=== PATIENT | female | born 1995 | race Caucasian/White ===

== ENCOUNTER 2018-03-01 00:38 | Outpatient (CLI) | payer MEDICAID, SELFPAY ==
--- NOTE | 2018-03-01 08:53 | DI.US_ITS ---
SYMPTOMS/DIAGNOSIS: PAIN, FULLNESS, AXILLARY ADENOPATHY, 59.0, R22.2, L73.2 BILATERAL AXILLARY ULTRASOUND: Sonographic evaluation of the axilla was performed. In the left axilla there is a 1.9 x 1.6 x 0.7 cm hypoechoic mass with a hyperechoic vascular hilum. The findings is consistent with a benign lymph node. In the right axilla there are two similar masses noted. The larger measuring 1.4 x 2.0 x 1.0 cm. The smaller measuring 1.5 x 0.9 x 0.6 cm. They are each hypoechoic with a vascular hyperechoic hilum consistent with benign appearing lymph nodes. IMPRESSION: Bilateral benign appearing lymph nodes in the axilla.
== END 2018-03-01 00:58 ==
PROVIDERS: PCP Nurse Practitioner Family; Visit Provider Student in an Organized Health Care Education/Training Program
DX: R59.0 Localized enlarged lymph nodes (principal); R22.2 Localized swelling, mass and lump, trunk; L73.2 Hidradenitis suppurativa
CPT/HCPCS: 76881

== ENCOUNTER 2020-11-06 13:07 | Outpatient (CLI) | payer MEDICAID, SELFPAY ==
--- NOTE | 2020-11-06 13:00 | RT.EKG_ITS ---
APPROVED REPORT Exam: Resting ECG Reason for Exam: irregular HR? Patient Location: O HR:79 bpm ECG Measurements Heart Rate 79 AXIS PA 155 P 36 QRSd 93 QRS 26 QT 356 T 21 QTc 408 Conclusion Sinus arrhythmia...V-rate 63- 92, variation>10%
== END 2020-11-06 13:08 | disposition home or self-care (01) ==
LOC: DI.KIM 13:08
PROVIDERS: PCP Student in an Organized Health Care Education/Training Program; Visit Provider Nurse Practitioner Family
DX: I49.9 Cardiac arrhythmia, unspecified (principal)
CPT/HCPCS: 93010

== ENCOUNTER 2020-11-08 10:41 | Outpatient (RCR) | payer MEDICAID, SELFPAY ==
--- OUTSIDE RECORDS SUMMARY | 2020-11-08 10:45 | XMS_ITS ---
:1995 Author Care Team Providers Name Role Phone BEBA DESIREE HALEY Primary Care Provider [phone] RADHA LAINEZ MD General Surgeon [phone] DAR CRUZ Unpaid Intern [phone] Allergies Code Code System Name Reaction Severity Status Onset 723 RxNorm Amoxicillin ? ? Active ? Bee Venom Anaphylaxis ? Active ? Protein (Honey Bee) 2670 RxNorm Codeine ? ? Active ? Penicillins ? ? Active ? [id number] RxNorm Pineapple Anaphylaxis ? Active ? Shellfish Anaphylaxis ? Active ? Derived Notes: hymenoptera-anaphylaxis Medications Name Status Start Date Stop Date ? ? acetaminophen 325 mg tablet Active ? Not available Take 1 tablet every 4 hours by oral route as needed. albuterol 90 mcg/actuation aerosol inhaler Active ? Not available Inhale 2 puffs every 4-6 hours by inhalation route as needed. aspirin 81 mg tablet,delayed release Active ? Not available Take 2 tablets every day by oral route. cholecalciferol (vitamin D3) Active ? Not available 2,000 unit capsule, PO daily cyclobenzaprine 5 mg tablet Completed ? 03/04 EpiPen 0.3 mg/0.3 mL injection, auto-injector Active Not available prn gabapentin 300 mg capsule Completed ? 2019 ibuprofen 200 mg capsule Active ? Not radha ilable Take 4 capsules every 8 hours by oral route as needed. ibuprofen 600 mg tablet Completed ? 03/26/20 20 letrozole 2.5 mg tablet Completed ? 03/26/20 20 levothyroxine 100 mcg tablet Completed ? levothyroxine 112 mcg capsule Active ? No t available Take 1 capsule every day by oral route. levothyroxine 50 mcg tablet Completed ? 03/04 levothyroxine 75 mcg tablet Completed ? 03/04 Macrobid 100 mg capsule Completed ? 03/26/20 20 Take 1 capsule every 12 hours by oral route for 7 days. metformin ER 500 mg tablet,extended release 24 hr Active ? Not available Take 3 tablets every day by oral route for 90 days. metformin ER 750 mg Completed ? 03/26/2020 tablet,extended release 24 hr ondansetron HCl 4 mg tablet Completed ? 03/04 Gummies 400 mcg-35 mg-25 mg-5 mg chewable tablet Active ? Not available Take 2 tablets every day by oral route. progesterone micronized 200 mg Completed ? 1 05/26/2019 capsule promethazine 12.5 mg tablet Completed ? 03/04 promethazine 25 mg rectal Completed ? 2019 suppository Pyridium 200 mg tablet Completed ? 0 Take 1 tablet 3 times a day by oral route for 2 days. terconazole 0.4 % vaginal cream Completed ? 03/26/2020 Notes: 01/20/2020 patient only ta ron metformin and levothyroxine Problems Name Status Onset Date Source ? Asthma Active 10/03/2018 ? Seizure Active 10/03/2018 ? Hypothyroidism Active 03/26/2020 ? Jordan Thyroiditis Active 03/26/2020 ? Anxiety Active 03/26/2020 ? Adjustment Disorder Active 03/26/2020 ? Posttraumatic Stress Disorder Active 03/26/2020 ? Attention Deficit Hyperactivity Disorder Active 020 ? Chronic Fatigue Syndrome Active 03/26/2020 ? Idiopathic Generalized Epilepsy Active 03/26/2020 ? Neuropathy Active 03/26/2020 ? Bronchospasm Active 03/26/2020 ? Femoral Hernia Active 03/26/2020 ? Urinary Tract Infectious Disease Active 03/26/2020 ? Pain in Pelvis Active 03/26/2020 ? Female Infertility Active 03/26/2020 ? Hip Pain Active 03/26/2020 ? Jaw Pain Active 03/26/2020 ? Lymphadenopathy Active 03/26/2020 ? Increased Frequency of Urination Active 03/26/2020 ? Concussion Injury of Brain Active 03/26/2020 ? Cyst Active 03/26/2020 ? Suicidal Intent Active 03/26/2020 ? Polycystic Ovary Active 03/26/2020 ? Procedures Date Name Performed by ? 07/02/2019 Cholecystectomy Laparoscopic Information not available 02/24/2017 Hernia Repair Information not avai lable Notes: rt femoral with mesh 10/31/2016 Dilation and Curettage Information not a vailable 08/19/2015 Section Information not avai lable ? Tonsillectomy Information not avai lable ? Wrist Surgery Information not avai lable Results Lab Results Date Name Specimen Result Interpretation Description Value Range Status Address ? 04/03/2019 TSH, Serum S - Tsh 0.84 u[IU]/mL 0.47-4.68 Final [facility] or Plasma u[IU]/mL Count Hospital L ab (Internal) : [address] 04/03/2019 T4, Free, S - Ft4 0.90 NG/dL 0.78-2.19 Fin [facility] Serum NG/dL [facility] Hospital L ab (Internal) : [address] [facility] 04/03/2019 Neutrophil BLD - Anc-man 9.60 10*3/uL ? F inal [facility] Count, ual [facility] Hospital Lab (Anc), Blood (Int ernal): [address] 04/03/2019 Differential BLD - Polys 69 % 40-75 % Final [place] [facility] L ab (Internal) : [address] ? ? BLD - Bands 0 % 0-5 % Final [facility] L ab (Internal) : [address] ? ? BLD - Lymphs 27 % 20-50 % Final [facility] L ab (Internal) : [address] t ? ? BLD - [place] 3 % 2-10 % Final [facility] L ab (Internal) : [address] ? ? BLD - Eos 0 % 0-6 % Final [facility] L ab (Internal) : [address] ? ? BLD - Baso 0 % 0-1 % Final [facility] L ab (Internal) : [address] t ? ? BLD - Atyp 1 % ? Final [facility] L ab (Internal) : [address] ? ? BLD - Plts, adequate adequate Final [facility] Hospital L ab (Internal) : [address] ? ? BLD - RBC normal normal Final [facility] Hospital L ab (Internal) : [address] t 04/03/2019 CBC W/ Auto BLD High Wbc 13.9 10*3/uL 5.0-10.0 Final [facility] Diff 10*3/uL [facility] Hospital L ab (Internal) : [address] ? ? BLD Low Rbc 3.58 10*6/uL 4.10-5.30 Final N orth 10*6/uL [facility] Hospital L ab (Internal) : [address] ? ? BLD Low Hgb 10.8 g/dL 12.0-16.0 Final Nort h g/dL [facility] Hospital L ab (Internal) : [address] ? ? BLD Low Hct 31.6 % 37.0-47.0 Final [facility] L ab (Internal) : [address] ? ? BLD - Mcv 88.3 fL 80.0-96.0 Final [facility] fL [facility] L ab (Internal) : [address] ? ? BLD - Mch 30.2 pg 26.0-32.0 Final [facility] pg [facility] L ab (Internal) : [address] ? ? BLD - Mchc 34.2 g/dL 31.0-35.0 Final Nort h g/dL [facility] L ab (Internal) : [address] ? ? BLD - Rdw 13.4 % 11.5-14.5 Final [facility] L ab (Internal) : [address] ? ? BLD - Plt 153 10*3/uL 130-450 Final Nort h 10*3/uL [facility] L ab (Internal) : [address] 01/18/2019 T4, Free, S - Ft4 1.08 NG/dL 0.78-2.19 Fin [facility] Serum NG/dL [facility] L ab (Internal) : [address] 01/18/2019 TSH, Serum S Low Tsh 0.44 u[IU]/mL 0.47-4.68 Final [facility] or Plasma u[IU]/mL Count Hospital L ab (Internal) : [address] 12/21/2018 Glucose S High Gluc, 1 167 mg/dL 70-140 Final [facility] Tolerance hr Pp mg/dL [facility], (Int ernal): 1-Hour [address] 12/01/2018 T4, Free, S - Ft4 1.02 NG/dL 0.78-2.19 Fin al [facility] Serum NG/dL [facility] L ab (Internal) : [address] 12/01/2018 TSH, Serum S - Tsh 0.52 u[IU]/mL 0.47-4.68 Final [facility] or Plasma u[IU]/mL Count [facility] L ab (Internal) : [address] 11/20/2018 UR ABNORMA Hcgu positive negative Final [facility] Test, Urine L Count [facility] L ab (Internal) : [address] 11/20/2018 Urinalysis, UR - UA-colo yellow pale Final [facility] Dipstick, r yellow [facility] ital Lab (Internal) : [address] t ? ? UR ABNORMA UA-appe cloudy clear Final [facility] L ab (Internal) : [address] ? ? UR - UA-spec 1.015 1.003-1.03 Final Nort h Grav 5 [facility] L ab (Internal) : [address] ? ? UR - UA-pH 7.0 [pH] 4.6-8.0 Final [facility] [pH] [facility] L ab (Internal) : [address] ? ? UR - UA-leuk negative negative Final Nort h Est [facility] L ab (Internal) : [address] t ? ? UR - UA-nitr negative negative Final Nort h ite [facility] L ab (Internal) : [address] t ? ? UR - UA-prot negative negative Final Nort h [facility] L ab (Internal) : [address] t ? ? UR - UA-gluc negative negative Final Nort h [facility] L ab (Internal) : [address] t ? ? UR - UA-keto negative negative Final Nort h ne [facility] L ab (Internal) : [address] t ? ? UR - UA-urob normal normal Final [facility] L ab (Internal) : [address] t ? ? UR - UA-bili negative negative Final Nort h [facility] ab (Internal) : [address] t ? ? UR - UA-bloo negative negative Final Nort h d [facility] ab (Internal) : [address] 11/20/2018 Urinalysis, UR - UA-WBC 0-3 [hpf] 0-3 [hpf] F inal [place] Microscopic Count [facility] L ab (Internal) : [address] t ? ? UR - UA-RBC 0-2 [hpf] 0-2 [hpf] Final Nor th [facility] L ab (Internal) : [address] t ? ? UR ABNORMA UA-bact few [hpf] none seen Final N orth L eria [hpf] [facility] ab (Internal) : [address] t ? ? UR ABNORMA UA-epit moderate none seen Final No rth L helial [hpf] [hpf] [facility] ab (Internal) : [address] t ? ? UR ABNORMA UA-mucu rare [hpf] none seen Final [facility] L s [hpf] [facility] ab (Internal) : [address] t ? ? UR - Amorph moderate ? Final [place] [hpf] [facility] ab (Internal) : [address] t 11/20/2018 Culture UR - Final microbiology ? Final [facility] ([place] results Country Count), Hospital Lab Urine (Internal) : [address] t 11/01/2018 T4, Free, S - Ft4 1.21 NG/dL 0.78-2.19 Fin [facility] Serum NG/dL [facility] L ab (Internal) : [address] t 11/01/2018 TSH, Serum S - Tsh 1.41 u[IU]/mL 0.47-4.68 Final North or Plasma u[IU]/mL Count [facility] L ab (Internal) : [address] t 10/07/2018 beta-HCG, S High HCG, 1372.9 2.0-6.0 Final No rth Quantitative Quant [IU]/mL [IU]/mL Co untry , Serum or Hospit al Lab Plasma (Internal) : [address] t 10/05/2018 CT RNA, MISC - Specime urine ? Final Nor th Qual, PCR, n Countr y Unspecified Descript Hos pital Lab Specimen ion (Interna l): [address] [facility] ? ? MISC - Chlamyd negative ? Final [facility] Result Hospital L ab (Internal) : [address] [facility] ? ? MISC - GC negative ? Final [facility] Hospital L ab (Internal) : [address] [facility] 10/05/2018 Progesterone S - Progest 17.5 NG/mL ? F inal [place] , Serum [facility] L ab (Internal) : [address] [facility] 10/05/2018 beta-HCG, S High HCG, 404.4 [IU]/mL 2.0-6.0 Fi [facility] Quantitative Quant [IU]/mL Cou ntry , Serum or Hospit al Lab Plasma (Internal) : [address] [facility] 10/05/2018 TSH, Serum S High Tsh 5.34 u[IU]/mL 0.47-4.68 Final North or Plasma u[IU]/mL Count Hospital L ab (Internal) : [address] [facility] 10/02/2018 TSH, Serum S - Tsh 3.00 u[IU]/mL 0.47-4.68 Final North or Plasma u[IU]/mL Count Hospital L ab (Internal) : [address] [facility] 10/02/2018 beta-HCG, S High HCG, 132.2 [IU]/mL 2.0-6.0 Fi [facility] Quantitative Quant [IU]/mL Cou ntry , Serum or Hospit al Lab Plasma (Internal) : [address] [facility] 09/30/2018 Progesterone S - Progest 15.7 NG/mL ? F inal [facility] , Serum [facility] Hospital L ab (Internal) : [address] [facility] 09/30/2018 Estradiol, S - Estradi 310 pg/mL ? Kaylene l [facility] Serum [facility] L ab (Internal) : [address] [facility] 09/30/2018 TSH, Serum S - Tsh 2.25 u[IU]/mL 0.47-4.68 Final North or Plasma u[IU]/mL Count Hospital L ab (Internal) : [address] t 09/30/2018 beta-HCG, S High HCG, 58.0 [IU]/mL 2.0-6.0 Fin al [facility] Quantitative Quant [IU]/mL Cou ntry , Serum or Hospit al Lab Plasma (Internal) : [address] t 09/30/2018 Tick-borne BLD - Babesia negative negative Fin [facility] Disease Microti [facility] L ab (Internal) : [address] ? ? BLD - Babesia negative negative Final Nort h Duncani [facility] Hospital L ab (Internal) : [address] [place] ? ? BLD - Babesia negative negative Final Nort h divergen [facility]- Hospital L ab (Internal) : [address] [place] ? ? BLD - Anaplas negative negative Final Nort h ma [facility] Lab ophilum (Internal ): [address] [place] ? ? BLD - Saba negative negative Final Nort h ia [facility] Lab sis (Internal[facility] : [address] [place] ? ? BLD - Saba negative negative Final Nort h ia Country Ewingii/ Hospital Lab canis (Internal) : [address] [place] ? ? BLD - Saba negative negative Final Nort h ia [facility]is [facility] ensis (Internal) : [address] t ? ? BLD - B. negative negative Final [facility] i PCR, B Hospital Lab (Internal) : [address] t 09/30/2018 Borrelia S - Lyme negative ? Final No rth Burgdorferi Antibody Cou ntry Ab, Qual Hospital Lab Immunoassay, (Int ernal): Serum [address] t 09/30/2018 CBC W/ Auto BLD High Wbc 13.8 10*3/uL 5.0-10.0 Final North Diff 10*3/uL [facility] L ab (Internal) : [address] t ? ? BLD - Rbc 4.45 10*6/uL 4.10-5.30 Final N orth 10*6/uL [facility] L ab (Internal) : [address] ? ? BLD - Hgb 13.1 g/dL 12.0-16.0 Final Nort h g/dL [facility] Hospital L ab (Internal) : [address] ? ? BLD - Hct 38.1 % 37.0-47.0 Final [facility] Hospital L ab (Internal) : [address] ? ? BLD - Mcv 85.6 fL 80.0-96.0 Final [facility] Hospital L ab (Internal) : [address] ? ? BLD - Mch 29.4 pg 26.0-32.0 Final [facility] Hospital L ab (Internal) : [address] ? ? BLD - Mchc 34.4 g/dL 31.0-35.0 Final Nort h g/dL [facility] Hospital L ab (Internal) : [address] ? ? BLD - Rdw 12.6 % 11.5-14.5 Final [facility] Hospital L ab (Internal) : [address] ? ? BLD - Plt 217 10*3/uL 130-450 Final Nort h 10*3/uL [facility] Hospital L ab (Internal) : [address] gerry ? ? BLD - Anc 9.07 10*3/uL ? Final Nort h [facility] Hospital L ab (Internal) : [address] ? ? BLD - Neutro 65.9 % 40.0-75.0 Final [facility] Hospital L ab (Internal) : [address] ? ? BLD - Lymph 26.0 % 20.0-50.0 Final [facility] Hospital L ab (Internal) : [address] ? ? BLD - [place] 6.0 % 2.0-10.0 % Final [facility] Hospital L ab (Internal) : [address] ? ? BLD - Eos 1.3 % 1.0-6.0 % Final [facility] Hospital L ab (Internal) : [address] ? ? BLD - Baso 0.4 % 0.0-1.0 % Final [facility] Hospital L ab (Internal) : [address] [facility] t ? ? BLD - Ig 0.4 % 0.0-0.9 % Final [facility] Hospital L ab (Internal) : [address] [facility] 09/01/2018 TSH, Serum S Low Tsh 0.08 u[IU]/mL 0.47-4.68 Final [facility] or Plasma u[IU]/mL Count Hospital L ab (Internal) : [address] [facility] 09/01/2018 Progesterone S - Progest 0.5 NG/mL ? Fi [facility] , Serum [facility] L ab (Internal) : [address] [facility] 09/01/2018 Estradiol, S - Estradi 18 pg/mL ? Final [facility] L ab (Internal) : [address] [facility] 09/01/2018 beta-HCG, S - HCG, <2.4 [IU]/mL 2.0-6.0 [facility] Quantitative Quant [IU]/mL Cou ntry , Serum or Hospit al Lab Plasma (Internal) : [address] [facility] 06/14/2018 beta-HCG, S - HCG, <2.4 [IU]/mL 2.0-6.0 [facility] Quantitative Quant [IU]/mL Cou ntry , Serum or Hospit al Lab Plasma (Internal) : [address] [facility] 05/17/2018 CT RNA, MISC - Specime urine ? Final Nor th Qual, PCR, n Countr y Unspecified Descript Hos pital Lab Specimen ion (Interna l): [address] t ? ? MISC - Chlamyd negative ? Final [facility] Result Hospital L ab (Internal) : [address] [facility] t ? ? MISC - GC negative ? Final [facility] Hospital L ab (Internal) : [address] [facility] 05/17/2018 [facility] MISC - [id number] see below ? Final No rth Refrigerate 05/20/2018 C ountry 01:54 pm Hospital Lab (Internal) : [address] [facility] 05/17/2018 Progesterone S - Progest 0.9 NG/mL ? [facility] , Serum [facility] L ab (Internal) : [address] [facility] 05/17/2018 beta-HCG, S - HCG, <2.4 [IU]/mL 2.0-6.0 [facility] Quantitative Quant [IU]/mL Cou ntry , Serum or Hospit al Lab Plasma (Internal) : [address] 05/17/2018 TSH, Serum S Low Tsh 0.18 u[IU]/mL 0.47-4.68 Final North or Plasma u[IU]/mL Count Hospital L ab (Internal) : [address] [place] 04/30/2018 Progesterone S - Progest 11.9 NG/mL ? F inal [place] , Serum erone [facility] L ab (Internal) : [address] [place] 12/12/2017 beta-HCG, S High HCG, 25.3 [IU]/mL 2.0-6.0 [facility] Quantitative Quant [IU]/mL Cou ntry , Serum or Hospit al Lab Plasma (Internal) : [address] [place] 12/09/2017 CBC W/ Auto BLD High Wbc 11.5 10*3/uL 5.0-10.0 Final [facility] Diff 10*3/uL [facility] L ab (Internal) : [address] gerry ? ? BLD - Rbc 4.24 10*6/uL 4.10-5.30 Final N orth 10*6/uL [facility] L ab (Internal) : [address] ? ? BLD - Hgb 12.5 g/dL 12.0-16.0 Final Nort h g/dL [facility] L ab (Internal) : [address] ? ? BLD Low Hct 36.0 % 37.0-47.0 Final [facility] % [facility] L ab (Internal) : [address] ? ? BLD - Mcv 84.9 fL 80.0-96.0 Final [facility] fL [facility] L ab (Internal) : [address] ? ? BLD - Mch 29.5 pg 26.0-32.0 Final [facility] pg [facility] L ab (Internal) : [address] ? ? BLD - Mchc 34.7 g/dL 31.0-35.0 Final Nort h g/dL [facility] Hospital L ab (Internal) : [address] [place] ? ? BLD - Rdw 12.8 % 11.5-14.5 Final [facility] % [facility] Hospital L ab (Internal) : [address] [place] [place] ? ? BLD - Plt 219 10*3/uL 130-450 Final Nort h 10*3/uL [facility] Hospital L ab (Internal) : [address] ? ? BLD - Anc 6.46 10*3/uL ? Final Nort h [facility] Hospital L ab (Internal) : [address] ? ? BLD - Neutro 56.2 % 40.0-75.0 Final [facility] Hospital L ab (Internal) : [address] ? ? BLD - Lymph 36.5 % 20.0-50.0 Final [facility] Hospital L ab (Internal) : [address] ? ? BLD - [place] 5.5 % 2.0-10.0 % Final [facility] Hospital L ab (Internal) : [address], [place] ? ? BLD - Eos 1.2 % 1.0-6.0 % Final [facility] Hospital L ab (Internal) : [address] ? ? BLD - Baso 0.3 % 0.0-1.0 % Final [facility] Hospital L ab (Internal) : [address] ? ? BLD - Ig 0.3 % 0.0-0.9 % Final [facility] Hospital L ab (Internal) : [address] t 12/09/2017 BMP, Serum S - g/r 88 mg/dL 74-106 Final North or Plasma mg/dL [facility] Hospital L ab (Internal) : [address] ? ? S - Bun 8 mg/dL 7-17 mg/dL Final [facility] Hospital L ab (Internal) : [address] ? ? S - Crea 0.60 mg/dL 0.52-1.04 Final [facility] th mg/dL [facility] Hospital L ab (Internal) : [address] ? ? S - Ca 9.3 mg/dL 8.4-10.2 Final [facility] mg/dL [facility] Hospital L ab (Internal) : [address] ? ? S - Na 138 mmol/L 137-145 Final North mmol/L [facility] Hospital L ab (Internal) : [address] t ? ? S - K 3.5 mmol/L 3.5-5.1 Final [place] mmol/L [facility] Hospital L ab (Internal) : [address] ? ? S - Cl 107 mmol/L 98-107 Final [facility] mmol/L [facility] Hospital L ab (Internal) : [address] ? ? S Low Tco2 20.0 mmol/L 22.0-30.0 Final No rth mmol/L [facility] Hospital L ab (Internal) : [address] 12/09/2017 Urinalysis, UR - UA-colo yellow pale Final [facility] Dipstick, r yellow [facility] ital Lab (Internal) : [address] ? ? UR - UA-appe clear clear Final [facility] Hospital L ab (Internal) : [address] ? ? UR - UA-spec 1.010 1.003-1.03 Final Nort h Grav 5 [facility] Hospital L ab (Internal) : [address] ? ? UR - UA-pH 6.5 [pH] 4.6-8.0 Final [facility] [pH] [facility] Hospital L ab (Internal) : [address] ? ? UR - UA-leuk negative negative Final Nort h Est [facility] Hospital L ab (Internal) : [address] t ? ? UR - UA-nitr negative negative Final Nort h ite [facility] Hospital L ab (Internal) : [address] ? ? UR - UA-prot negative negative Final Nort h [facility] Hospital L ab (Internal) : [address] ? ? UR - UA-gluc negative negative Final Nort h [facility] Hospital L ab (Internal) : [address] ? ? UR - UA-keto negative negative Final Nort h ne [facility] Hospital L ab (Internal) : [address] t ? ? UR - UA-urob normal normal Final North [facility] Hospital L ab (Internal) : [address] ? ? UR - UA-bili negative negative Final Nort h [facility] L ab (Internal) : [address] ? ? UR - UA-bloo negative negative Final Nort h d [facility] L ab (Internal) : [address] 12/09/2017 beta-HCG, S High HCG, 151.1 [IU]/mL 2.0-6.0 Fi nal [place] Quantitative Quant [IU]/mL Cou ntry , Serum or Hospit al Lab Plasma (Internal) : [address] 05/16/2017 [employer] + BLD ? Abo O ? Final N orth Rh Type, [facility] L ab (Internal) : [address] ? ? BLD ? Rh positive ? Final [facility] L ab (Internal) : [address] 05/16/2017 beta-HCG, S High HCG, 2854.7 2.0-6.0 Final No rth Quantitative Quant [IU]/mL [IU]/mL Co untry , Serum or Hospit al Lab Plasma (Internal) : [address] 05/16/2017 CBC W/ Auto BLD High Wbc 11.3 10*3/uL 5.0-10.0 Final North Diff 10*3/uL [facility] L ab (Internal) : [address] ? ? BLD Low Rbc 4.05 10*6/uL 4.10-5.30 Final N orth 10*6/uL [facility] L ab (Internal) : [address] ? ? BLD Low Hgb 11.8 g/dL 12.0-16.0 Final Nort h g/dL [facility] L ab (Internal) : [address] ? ? BLD Low Hct 34.8 % 37.0-47.0 Final [place]thon % [facility] L ab (Internal) : [address] ? ? BLD ? Mcv 85.9 fL 80.0-96.0 Final [facility] L ab (Internal) : [address] ? ? BLD ? Mch 29.1 pg 26.0-32.0 Final [facility] L ab (Internal) : [address] [place] ? ? BLD ? Mchc 33.9 g/dL 31.0-35.0 [facility] L ab (Internal) : [address] [place] ? ? BLD ? Rdw 12.6 % 11.5-14.5 Final [facility] L ab (Internal) : [address] , [place] ? ? BLD ? Plt 244 10*3/uL 130-450 Final Nort h 10*3/uL [facility] L ab (Internal) : [address] [place] ? ? BLD ? Anc 6.73 10*3/uL ? Final Nort h [facility] L ab (Internal) : [address] [place] ? ? BLD ? Neutro 59.3 % 40.0-75.0 Final [facility] L ab (Internal) : [address] ? ? BLD ? Lymph 32.7 % 20.0-50.0 Final [facility] L ab (Internal) : [address] [place] ? ? BLD ? [place] 5.4 % 2.0-10.0 % Final [facility] L ab (Internal) : [address] [place] ? ? BLD ? Eos 1.7 % 1.0-6.0 % Final [facility] ab (Internal) : [address] ? ? BLD ? Baso 0.6 % 0.0-1.0 % Final [facility] L ab (Internal) : [address] ? ? BLD ? Ig 0.3 % 0.0-0.9 % Final [facility] L ab (Internal) : [address], [place] Past Encounters 12/07/2019 Torticollis; Stiff Neck; Muscle Weakness ; Neck Pain Anne Adame, PT: [address], [address], [place] [address], Ph. 11/02/2019 Torticollis; Stiff Neck; Muscle Weakness ; Neck Pain Anne Adame, PT: [address], [address] [address], Ph. 10/10/2019 Torticollis; Stiff Neck; Muscle Weakness ; Neck Pain Anne Adame, PT: [address] [place] [address] Dr [address], [address] [id number], Ph. 07/12/2019 Torticollis; Stiff Neck; Muscle Weakness ; Neck Pain Anne Adame, PT: [address] [place] [address] Dr [address], [address] [phone], Ph. 07/05/2019 Torticollis; Stiff Neck; Muscle Weakness ; Neck Pain Anne Adame, PT: [address] [place] [address] Dr [address], [address] [address], Ph. 06/30/2019 Torticollis; Stiff Neck; Muscle Weakness ; Neck Pain Anne Adame, PT: [address] [place] [address] Dr [address], [address] [phone], Ph. Social History Tobacco Smoking Status Current Some Day Smoker Vaccine List None recorded. Plan of Care Reminders Provider Appointments None ? ? recorded. Lab None ? ? recorded. Referral None ? ? recorded. Procedures None ? ? recorded. Surgeries None ? ? recorded. Imaging None ? ? recorded. Vitals Height Weight BMI 160.02 cm 76.43 kg 29.8 kg/m2
--- NOTE | 2020-11-08 16:15 | HOLTER_ITS ---
APPROVED REPORT Conclusion There is a 48-hour monitor ordered for indication palpitations. The patient was in normal sinus rhythm for the majority recording with an average heart rate of 85 bp m. There were no episodes of ventricular tachycardia nor any episodes of supraventricular tachycardia. There were rare PACs/PVCs. There were no episodes of atrial fibrillation, no pauses greater than 3 seconds no evidence of high d egree heart block. There were 2 patient recorded events reported as a skipped beat. 1 of these events was associated wi th a single PAC and the other one with normal sinus rhythm.
== END 2020-11-30 23:59 | disposition home or self-care (01) ==
LOC: RT 10:41
PROVIDERS: PCP Student in an Organized Health Care Education/Training Program; Visit Provider Nurse Practitioner Family
DX: R00.2 Palpitations (principal)
CPT/HCPCS: 93225; 93226

== ENCOUNTER 2021-06-13 01:00 | Outpatient (CLI) | payer MEDICAID, SELFPAY ==
--- NOTE | 2021-06-13 13:24 | DI.RAD_ITS ---
Exam(s) XR CHEST 2V PA LATERAL EXAM: XR CHEST 2V PA LATERAL CLINICAL HISTORY: review for pneumonia, lung pathology,h/o chest pain,covid,r07.81,pleurodyni TECHNIQUE: 2D digital imaging was performed of the chest. Two images were obtained. PA and lateral views were obtained. COMPARISON: CR CHEST 2 VIEWS PA,LAT from 11/20/2011 FINDINGS: MEDIASTINUM: Normal. HEART: Normal. PULMONARY VASCULATURE: Normal. LUNGS: Clear. PLEURAL SPACE: No pleural effusion or pneumothorax. BONE:Within normal limits for the patient's age. OTHER FINDINGS:Normal. IMPRESSION: No acute pulmonary findings. DATA REPOSITORY: RADIATION DOSE DELIVERED:
== END 2021-06-13 01:20 ==
PROVIDERS: PCP Student in an Organized Health Care Education/Training Program; Visit Provider Student in an Organized Health Care Education/Training Program
DX: R07.81 Pleurodynia (principal); Z86.16 Personal history of COVID-19
CPT/HCPCS: 71046

== ENCOUNTER 2021-06-13 02:46 | Outpatient (CLI) | payer MEDICAID, SELFPAY ==
--- NOTE | 2021-07-07 09:04 | ZIOP_ITS ---
Date of service: 07/07/21 Time of Service: 09:04 [employer] Referring Provider:: elian Indications:: palps Note: There is a 14-day monitor order for indication of palpitations. ?The patient was in normal sinus rhythm for the majority the recording with an average heart rate of 76 bpm. ?There were rare PVCs and one episode of NSVT lasting 3 beats. This was reported as symptomatic. ?There were no episodes of supraventricular tachycardia and rare PACs. ?There were 13 patient triggered events which were associated predominantly with sinus rhythm and sinus tachycardia. ?There are no episodes of atrial fibrillation, no pauses greater than 3 seconds and no evidence of high degree heart block.
== END 2021-06-13 02:47 | disposition home or self-care (01) ==
LOC: RT 02:46
PROVIDERS: PCP Student in an Organized Health Care Education/Training Program; Visit Provider Student in an Organized Health Care Education/Training Program
DX: R00.2 Palpitations (principal); I49.9 Cardiac arrhythmia, unspecified; U09.9 Post COVID-19 condition, unspecified
CPT/HCPCS: 93246

== ENCOUNTER 2021-09-03 18:39 | Emergency (ER) | payer MEDICAID, SELFPAY ==
[2021-09-03 18:44] VITALS: BP 136/65; PULSE 84; RESP 16; TEMP 37.2; O2SAT 97
[2021-09-03 19:13] LABS: Bilirubin Negative (Negative); Blood Trace-intact (Negative); Clarity Clear (Clear); Glucose Negative (Negative); Ketones Negative (Negative); Leukocyte Esterase Negative (Negative); Nitrite Negative (Negative); Specific Gravity >= 1.030 (1.005-1.025); Urobilinogen 0.2 EU/dL (Up TO 0.2)
[2021-09-03 19:28] LABS: Bacteria Negative HPF (Negative); C & S Indicated? No; Casts Negative LPF (Negative); Crystals Negative HPF (Negative); Epithelial Cells Few HPF (Negative); Mucus Negative (Negative); Other Cells Negative (Negative); RBC Negative HPF (0-2)
--- NOTE | 2021-09-03 19:39 | ED.GENADUL_ITS ---
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 Urine Bilirubin (Negative) Negative Urine Urobilinogen (Up TO 0.2) EU/dL 0.2 Ur Leukocyte Esterase (Negative) Negative Urine RBC (0-2) HPF Negative Urine WBC (0-5) HPF 3-5 Ur Epithelial Cells (Negative) HPF Few Urine Crystals (Negative) HPF Negative Urine Bacteria (Negative) HPF Negative Urine Casts (Negative) LPF Negative Urine Mucus (Negative) Negative Urine Other (Negative) Negative Ur Culture Indicated? No Urine Glucose (Negative) mg/dL Negative POC- Test(urine) Negative
[2021-09-03] MEDS: Normal Saline 1,000 ML 1000 ML IV (20:13)
[2021-09-03 20:21] LABS: Abs Immature Grans 0.04 10^3/uL (0.0-0.06); Absolute Basophil Count 0.07 10^3/uL (0.0-0.2); Absolute Lymphocyte Count 4.24 10^3/uL (1.2-3.4); Absolute Monocyte Count 0.76 10^3/uL (0.1-0.8); Absolute Neutrophil Count 5.21 10^3/uL (1.2-6.7); Basophils % 0.7; Eosinophils % 2.8; HGB 12.7 g/dL (11.2-15.7); Immature Grans % 0.4; Lymphocytes % 39.9; MCH 27.5 pg (27.0-33.0); MCHC 33.4 % (32.0-36.0); MCV 82 fL (80-95); MPV 11.1 fL (8.0-11.0); Monocytes % 7.2; Platelet Count 249 10^3/uL (130-400); RBC 4.62 10^6/uL (3.93-5.22); RDW-SD 41.5 fL; WBC 10.62 10^3/uL (4.4-10.8)
[2021-09-03] MEDS: ACETAMINOPHEN 1,000 MG/100 ML BTL 400 MG IVPB (20:21)
--- NOTE | 2021-09-03 20:30 | DI.CT_ITS ---
Exam(s) CT RENAL COLIC WO EXAM: CT RENAL COLIC WO INDICATION: L flank pain, hematuria. COMPARISON: CT RENAL COLIC WO CONTRAST from 11/15/2012 TECHNIQUE: CT examination was performed without contrast administration. FINDINGS: Images obtained through the lung bases are unremarkable. Visualized portions of the liver and splee n appear intact. Visualized portions of the pancreas are unremarkable. Prior cholecystectomy noted, bile ducts are CT normal. Abdominal aorta is of normal diameter. Small fat containing umbilical hernia, no other significant abdominal wall hernia seen. No significa nt abdominal or pelvic adenopathy. Adrenals appear normal bilaterally. The kidneys are normal in size and shape. There is no evidence of a renal mass, hydronephrosis, or n ephrolithiasis. No ureteral dilatation or calcification identified. Urinary bladder is unremarkable in appearance. Appendix is normal. No specific evidence of diverticulitis. Mild fat stranding adjacent to descendi ng colon may represent epiploic appendagitis. IMPRESSION: Possible epiploic appendagitis of the descending colon. No urinary tract calcification or obstructio n. RADIATION DOSE DELIVERED: 973.58mGy.cm DLP 973.58mGy.cm Total DLP !Error CTDIvol RADIATION OPTIMIZATION: All CT scans at this facility use at least one of these dose optimization te chniques: automated exposure control; mA and/or kV adjustment per patient size (includes targeted exa ms where dose is matched to clinical indication); or iterative reconstruction.
[2021-09-03 20:35] LABS: ALT 35 U/L (14-59); AST 17 U/L (15-37); Alkaline Phosphatase 126 U/L (46-116); Anion Gap 9.3 mmol/L (3-11); BUN 14 mg/dL (7-18); Bilirubin, Total 0.2 mg/dL (0.2-1.0); CO2 24.7 mmol/L (21.0-32.0); CREATININE 0.7 mg/dL (0.55-1.02); Calcium 8.8 mg/dL (8.5-10.1); Chloride 103 mmol/L (98-107); Glucose 97 mg/dL (74-106); Lipase 120 U/L (73-393); Potassium 3.8 mmol/L (3.5-5.1); Sodium 137 mmol/L (136-145); Total Protein 7.6 g/dL (6.4-8.2)
--- NOTE | 2021-09-03 21:45 | DI.VRAD_ITS ---
PROCEDURE INFORMATION: Exam: CT Abdomen And Pelvis Without Contrast Exam date and time: 09/03/2021 8:46 PM Age: 26 years old Clinical indication: Abdominal pain; Flank; Left; Prior surgery; Surgery date: 6+ months; Surgery type: Cholecystectomy, ; Additional info: Left flank pain, hematuria TECHNIQUE: Imaging protocol: Computed tomography of the abdomen and pelvis without contrast. Radiation optimization: All CT scans at this facility use at least one of these dose optimization techniques: automated exposure control; mA and/or kV adjustment per patient size (includes targeted exams where dose is matched to clinical indication); or iterative reconstruction. COMPARISON: US ABDOMEN ULTRASOUND (P) 07/22/2016 3:00 PM FINDINGS: Liver: Normal. No mass. Gallbladder and bile ducts: Prior cholecystectomy. Pancreas: Normal. No ductal dilation. Spleen: Normal. No splenomegaly. Adrenal glands: Normal. No mass. Kidneys and ureters: Normal. No hydronephrosis. Stomach and bowel: There is a small focus of pericolonic fat stranding at the descending colon. There is no bowel wall thickening. No dilated loops of bowel identified. Appendix: No evidence of appendicitis. Intraperitoneal space: Unremarkable. No free air. No significant fluid collection. Vasculature: Unremarkable. No abdominal aortic aneurysm. Lymph nodes: Unremarkable. No enlarged lymph nodes. Urinary bladder: Unremarkable as visualized. Reproductive: Unremarkable as visualized. Bones/joints: Unremarkable. No acute fracture. Soft tissues: There is a fat containing umbilical hernia. Surgical clips are noted at the anterior abdominal wall. IMPRESSION: 1. Small focus of pericolonic fat stranding at the descending colon without a definitive colonic abnormality. Epiploic appendagitis is a possible etiology. 2. Small fat containing umbilical hernia. 3. Prior cholecystectomy. Dictated and Authenticated by: Kayla Baldwin MD. Ordering:KOTA Hall MD
[2021-09-03 22:16] VITALS: BP 111/66; PULSE 65; RESP 18; O2SAT 98
== END 2021-09-03 22:17 | disposition home or self-care (01) ==
PROVIDERS: Emergency Provider Physician Assistant; PCP Student in an Organized Health Care Education/Training Program
DX: K63.89 Other specified diseases of intestine (principal); R31.9 Hematuria, unspecified; Z87.442 Personal history of urinary calculi
CPT/HCPCS: 80053; 81025; 83690; 96361; 96365; 96366; 99284; 74176; 81003; 81015; 85025; 99283; J0131

== ENCOUNTER 2021-09-04 12:23 | Outpatient (REF) | payer MEDICAID, SELFPAY ==
[2021-09-04 15:29] LABS: ALT 40 U/L (14-59); AST 22 U/L (15-37); Albumin 4.3 g/dL (3.4-5.0); Alkaline Phosphatase 129 U/L (46-116); Anion Gap 8.5 mmol/L (3-11); BUN 14 mg/dL (7-18); Bilirubin, Total 0.5 mg/dL (0.2-1.0); C-Reactive Protein 0.29 mg/dL (0.0-0.3); CO2 24.5 mmol/L (21.0-32.0); CREATININE 0.7 mg/dL (0.55-1.02); Calcium 9.1 mg/dL (8.5-10.1); Chloride 105 mmol/L (98-107); Glucose 83 mg/dL (74-106); Potassium 4.3 mmol/L (3.5-5.1); Sodium 138 mmol/L (136-145); Total Protein 7.8 g/dL (6.4-8.2)
[2021-09-04 15:34] LABS: Abs Immature Grans 0.03 10^3/uL (0.0-0.06); Absolute Basophil Count 0.06 10^3/uL (0.0-0.2); Absolute Eosinophil Count 0.25 10^3/uL (0.0-0.7); Absolute Lymphocyte Count 3.89 10^3/uL (1.2-3.4); Absolute Monocyte Count 0.58 10^3/uL (0.1-0.8); Absolute Neutrophil Count 5.32 10^3/uL (1.2-6.7); Basophils % 0.6; Eosinophils % 2.5; HCT 40.9 % (36.0-46.0); HGB 13.4 g/dL (11.2-15.7); Immature Grans % 0.3; Lymphocytes % 38.4; MCHC 32.8 % (32.0-36.0); MCV 83 fL (80-95); MPV 11.6 fL (8.0-11.0); Monocytes % 5.7; Neutrophils % 52.5; Platelet Count 269 10^3/uL (130-400); RBC 4.96 10^6/uL (3.93-5.22); RDW 14.2 % (11.7-14.6); WBC 10.13 10^3/uL (4.4-10.8)
== END 2021-09-04 12:24 | disposition home or self-care (01) ==
LOC: LBN 12:23
PROVIDERS: PCP Student in an Organized Health Care Education/Training Program; Referring Provider Student in an Organized Health Care Education/Training Program; Visit Provider Student in an Organized Health Care Education/Training Program
DX: K63.89 Other specified diseases of intestine (principal); E28.2 Polycystic ovarian syndrome
CPT/HCPCS: 80053; 86308; 85025; 86140

== ENCOUNTER 2021-09-07 00:30 | Emergency (ER) | payer MEDICAID, SELFPAY ==
[2021-09-07 00:35] VITALS: BP 146/77; PULSE 79; RESP 16; TEMP 36.4; O2SAT 96
[2021-09-07 00:52] VITALS: BP 96/57; PULSE 651; RESP 16; O2SAT 93
--- NOTE | 2021-09-07 00:57 | DI.CT_ITS ---
Exam(s) CT ABDOMEN PELVIS WO EXAM: CT ABDOMEN PELVIS WO INDICATION: worsening abdominal pain, recent noncontrast ct. COMPARISON: CT CT RENAL COLIC WO from 09/03/2021 TECHNIQUE: FINDINGS: CT examination of the abdomen and pelvis was performed without contrast administration. Images obtained through the lung bases are unremarkable. The liver is unremarkable in appearance. Gallbladder and bile ducts are CT normal. Pancreas appears normal. Spleen is unremarkable in appearance. Adrenals appear normal. The kidneys are unremarkable with no evidence of hydronephrosis, nephrolithiasis, or renal mass.. Ur inary bladder may have a mildly thickened wall, please correlate regarding possibility of cystitis.. Abdominal aorta is of normal diameter and no major vascular abnormality is seen. No abdominal wall hernia. No abdominal or pelvic adenopathy. CAMPAIGN DIRECTOR structures appear intact. Appendix is normal. No evidence of diverticulitis or bowel obstruction. Examination is compared with prior examination September 03 which showed slight pericolonic fat edema in t he descending colon, this finding is less prominent on the current examination. No colonic wall thic kening seen in ascending, transverse or descending colon. No evidence of diverticulitis. Doubt coli tis. IMPRESSION: Decreased prominence of pericolonic fat stranding in the descending colon since September 03. No new sign ificant colonic findings. Question mild bladder wall thickening, please correlate regarding the possibility of cystitis. RADIATION DOSE DELIVERED: 1,096.96mGy.cm Total DLP 1,096.96mGy.cm Total DLP !Error CTDIvol RADIATION OPTIMIZATION: All CT scans at this facility use at least one of these dose optimization te chniques: automated exposure control; mA and/or kV adjustment per patient size (includes targeted exa ms where dose is matched to clinical indication); or iterative reconstruction.
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
[2021-09-07] MEDS: Lactated Ringers 1,000 ML 1000 ML IV (01:17)
[2021-09-07] MEDS: Ondansetron 4 MG/2 ML VIAL IV (01:18)
[2021-09-07 01:30] LABS: Abs Immature Grans 0.03 10^3/uL (0.0-0.06); Absolute Basophil Count 0.07 10^3/uL (0.0-0.2); Absolute Eosinophil Count 0.31 10^3/uL (0.0-0.7); Absolute Lymphocyte Count 4.02 10^3/uL (1.2-3.4); Absolute Monocyte Count 0.67 10^3/uL (0.1-0.8); Absolute Neutrophil Count 4.08 10^3/uL (1.2-6.7); Basophils % 0.8; Eosinophils % 3.4; HCT 36.6 % (36.0-46.0); HGB 11.9 g/dL (11.2-15.7); Immature Grans % 0.3; Lymphocytes % 43.8; MCH 27.4 pg (27.0-33.0); MCHC 32.5 % (32.0-36.0); MCV 84 fL (80-95); MPV 11.1 fL (8.0-11.0); Monocytes % 7.3; Neutrophils % 44.4; Platelet Count 219 10^3/uL (130-400); RBC 4.35 10^6/uL (3.93-5.22); RDW 13.7 % (11.7-14.6); RDW-SD 42.7 fL; WBC 9.18 10^3/uL (4.4-10.8)
[2021-09-07] MEDS: Breeza Beverage 473 ML BTL PO ×2 (01:36→01:37)
[2021-09-07] MEDS: Gastrografin 120 ML BTL PO (01:37)
[2021-09-07 01:46] LABS: ALT 36 U/L (14-59); AST 19 U/L (15-37); Albumin 3.7 g/dL (3.4-5.0); Alkaline Phosphatase 119 U/L (46-116); Anion Gap 10.1 mmol/L (3-11); BUN 21 mg/dL (7-18); Bilirubin, Total 0.3 mg/dL (0.2-1.0); CO2 24.9 mmol/L (21.0-32.0); CREATININE 0.8 mg/dL (0.55-1.02); Calcium 8.5 mg/dL (8.5-10.1); Chloride 105 mmol/L (98-107); Glucose 101 mg/dL (74-106); Lipase 105 U/L (73-393); Potassium 3.4 mmol/L (3.5-5.1); Sodium 140 mmol/L (136-145); Total Protein 7.1 g/dL (6.4-8.2)
[2021-09-07 01:58] LABS: Bilirubin Negative (Negative); Blood Negative (Negative); Clarity Clear (Clear); Glucose Negative (Negative); Ketones Negative (Negative); Leukocyte Esterase Negative (Negative); Nitrite Negative (Negative); Specific Gravity 1.025 (1.005-1.025); Urobilinogen 0.2 EU/dL (Up TO 0.2); pH 6.5 (5-8)
[2021-09-07 02:44] VITALS: BP 112/79; PULSE 62; RESP 16; O2SAT 97
[2021-09-07 04:00] LABS: C Diff PCR Positive (Negative)
--- NOTE | 2021-09-07 04:27 | DI.VRAD_ITS ---
PROCEDURE INFORMATION: Exam: CT Abdomen And Pelvis Without Contrast Exam date and time: 09/07/2021 2:31 AM Age: 26 years old Clinical indication: Prior surgery; Patient HX: Worsening abdominal pain; Additional info: Po contrast only TECHNIQUE: Imaging protocol: Computed tomography of the abdomen and pelvis without contrast. Other contrast: Oral, Gastrografin; COMPARISON: CT RENAL COLIC WO 09/03/2021 8:46 PM FINDINGS: Liver: Normal. No mass. Gallbladder and bile ducts: Cholecystectomy Pancreas: Normal. No ductal dilation. Spleen: Normal. No splenomegaly. Adrenal glands: Normal. No mass. Kidneys and ureters: Normal. No hydronephrosis. Stomach and bowel: There is evidence of colonic wall thickening and pericolonic fat stranding involving the ascending colon as well as focal wall thickening and surrounding fat stranding within the descending colon as noted on the previous exam. Small bowel loops are unremarkable. Appendix: The appendix is not well visualized. No inflammatory changes within the right lower quadrant. Intraperitoneal space: Unremarkable. No free air. No significant fluid collection. Vasculature: Unremarkable. No abdominal aortic aneurysm. Lymph nodes: Unremarkable. No enlarged lymph nodes. Urinary bladder: The bladder demonstrates circumferential wall thickening and mild surrounding fat stranding. Findings can be seen with an infectious or inflammatory process. Correlation with clinical symptomatology and laboratory values is recommended. Reproductive: Unremarkable as visualized. Bones/joints: Unremarkable. No acute fracture. Soft tissues: Unremarkable. IMPRESSION: 1. There is evidence of colonic wall thickening and surrounding fat stranding within the ascending colon and focally within the descending colon as noted on the previous exam. Findings may relate to colitis, either infectious, inflammatory, less likely ischemic or neoplastic in nature. 2. The bladder demonstrates circumferential wall thickening and mild surrounding fat stranding. Findings can be seen with an infectious or inflammatory process. Correlation with clinical symptomatology and laboratory values is recommended. Dictated and Authenticated by: Dc Merida MD. Ordering:SHERYL Corbin MD
[2021-09-07 04:59] VITALS: BP 125/75; PULSE 73; RESP 16; O2SAT 96
[2021-09-07] MEDS: Vancomycin 125 MG CAP PO (17:13)
--- NOTE | 2021-09-08 11:12 | NUR.NOTE ---
Nursing Note: [facility]; Alexa; called about quantity of Dificid. I did not see that she was dispensed one in the ED. Per Dr Tamiko Jenkins I told the pharmacy to change from 19 to 20. Karen Nam
== END 2021-09-07 05:04 | disposition home or self-care (01) ==
PROVIDERS: Emergency Provider Student in an Organized Health Care Education/Training Program; PCP Student in an Organized Health Care Education/Training Program
DX: A04.72 Enterocolitis due to Clostridium difficile, not specified as recurrent (principal); R10.9 Unspecified abdominal pain
CPT/HCPCS: 80053; 81025; 83690; 87493; 96361; 96374; 99284; 74176; 81003; 85025; J2405

== ENCOUNTER → 2021-09-11 09:31 | Outpatient (CLI) | payer MEDICAID, SELFPAY ==
--- NOTE | 2021-09-11 10:45 | DI.RAD_ITS ---
Exam(s) XR ABDOMEN FLAT UPRIGHT EXAM: XR ABDOMEN FLAT UPRIGHT CLINICAL HISTORY: Enterocolitis due to clostridium difficile, A04.72 - Abdominal pain, R10.84 TECHNIQUE: COMPARISON: No exams were available for comparison FINDINGS: Two views were obtained. Bowel gas pattern is within normal limits. There are vascular clips in the right upper quadrant and in the pelvis. No gross organomegaly. No free intraperitoneal air on the upright view. IMPRESSION: No evidence of acute process. RADIATION DOSE DELIVERED: Total DLP
== END ==
PROVIDERS: PCP Student in an Organized Health Care Education/Training Program; Visit Provider Student in an Organized Health Care Education/Training Program
DX: R10.84 Generalized abdominal pain (principal); A04.72 Enterocolitis due to Clostridium difficile, not specified as recurrent
CPT/HCPCS: 74019

== ENCOUNTER 2021-09-11 12:39 | Outpatient (CLI) | payer MEDICAID, SELFPAY | END 2021-09-11 12:40 | disposition home or self-care (01) | PROVIDERS: PCP Student in an Organized Health Care Education/Training Program; Visit Provider Student in an Organized Health Care Education/Training Program ==

== ENCOUNTER 2021-09-11 13:29 | Outpatient (REF) | payer MEDICAID, SELFPAY ==
[2021-09-11 15:30] LABS: Abs Immature Grans 0.02 10^3/uL (0.0-0.06); Absolute Basophil Count 0.04 10^3/uL (0.0-0.2); Absolute Eosinophil Count 0.22 10^3/uL (0.0-0.7); Absolute Monocyte Count 0.49 10^3/uL (0.1-0.8); Absolute Neutrophil Count 4.17 10^3/uL (1.2-6.7); Basophils % 0.5; Eosinophils % 2.8; HCT 37.5 % (36.0-46.0); HGB 12.2 g/dL (11.2-15.7); Immature Grans % 0.3; Lymphocytes % 37.8; MCH 27.4 pg (27.0-33.0); MCHC 32.5 % (32.0-36.0); MCV 84 fL (80-95); MPV 11.5 fL (8.0-11.0); Monocytes % 6.2; Neutrophils % 52.4; Platelet Count 253 10^3/uL (130-400); RBC 4.45 10^6/uL (3.93-5.22); RDW 13.5 % (11.7-14.6); RDW-SD 41.7 fL; WBC 7.94 10^3/uL (4.4-10.8)
[2021-09-11 15:38] LABS: ALT 37 U/L (14-59); AST 22 U/L (15-37); Albumin 4.3 g/dL (3.4-5.0); Alkaline Phosphatase 117 U/L (46-116); Anion Gap 10.6 mmol/L (3-11); BUN 19 mg/dL (7-18); Bilirubin, Total 0.3 mg/dL (0.2-1.0); CO2 27.4 mmol/L (21.0-32.0); CREATININE 1.1 mg/dL (0.55-1.02); Calcium 9.1 mg/dL (8.5-10.1); Chloride 105 mmol/L (98-107); Glucose 91 mg/dL (74-106); Potassium 4.5 mmol/L (3.5-5.1); Sodium 143 mmol/L (136-145); Total Protein 7.6 g/dL (6.4-8.2)
== END 2021-09-11 13:30 | disposition home or self-care (01) ==
LOC: LBN 13:29
PROVIDERS: PCP Student in an Organized Health Care Education/Training Program; Visit Provider Student in an Organized Health Care Education/Training Program
DX: R10.84 Generalized abdominal pain (principal); E86.0 Dehydration; A04.72 Enterocolitis due to Clostridium difficile, not specified as recurrent
CPT/HCPCS: 80053; 86141; 85025

== ENCOUNTER 2021-10-04 14:24 | Outpatient (REF) | payer MEDICAID, SELFPAY ==
[2021-10-04 15:36] LABS: C Diff PCR Positive (Negative)
== END 2021-10-04 14:25 | disposition home or self-care (01) ==
LOC: LBN 14:24
PROVIDERS: PCP Student in an Organized Health Care Education/Training Program; Visit Provider Student in an Organized Health Care Education/Training Program
DX: A04.72 Enterocolitis due to Clostridium difficile, not specified as recurrent (principal); R19.5 Other fecal abnormalities
CPT/HCPCS: 87493

== ENCOUNTER 2021-10-04 19:19 | Emergency (ER) | payer MEDICAID, SELFPAY ==
[2021-10-04 19:26] VITALS: BP 102/69; PULSE 86; RESP 18; TEMP 36.9; O2SAT 99
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
[2021-10-04 20:19] VITALS: RESP 18
== END 2021-10-04 21:00 | disposition home or self-care (01) ==
PROVIDERS: Emergency Provider Physician Assistant; PCP Student in an Organized Health Care Education/Training Program
DX: A04.72 Enterocolitis due to Clostridium difficile, not specified as recurrent (principal)
CPT/HCPCS: 99283

== ENCOUNTER 2021-11-07 02:19 | Outpatient (CLI) | payer MEDICAID, SELFPAY ==
[2021-11-07 17:17] LABS: ALT 48 U/L (14-59); Albumin 4.1 g/dL (3.4-5.0); Alkaline Phosphatase 121 U/L (46-116); Anion Gap 12.4 mmol/L (3-11); BUN 24 mg/dL (7-18); Bilirubin, Total 0.5 mg/dL (0.2-1.0); CO2 24.6 mmol/L (21.0-32.0); CREATININE 0.7 mg/dL (0.55-1.02); Calcium 8.3 mg/dL (8.5-10.1); Chloride 99 mmol/L (98-107); Cholesterol 285 mg/dL (<200); Glucose 141 mg/dL (74-106); HDL Cholesterol 37 mg/dL (40-60); Potassium 3.7 mmol/L (3.5-5.1); Sodium 136 mmol/L (136-145); Triglyceride 970 mg/dL (<150)
[2021-11-07 17:39] LABS: Hemoglobin A1C 5.1 % (<5.7)
[2021-11-07 17:52] LABS: FREE T4 0.94 ng/dL (0.76-1.46)
[2021-11-07 17:57] LABS: LDL CHOLESTEROL 158 mg/dL (<100); Total Protein 8.1 g/dL (6.4-8.2)
[2021-11-07 18:13] LABS: AST 30 U/L (15-37)
[2021-11-10 05:57] LABS: Vitamin D 25 Total 15.8 ng/mL (30-100)
[2021-11-10 15:32] LABS: IgA 213 mg/dL (85-499); Interpretation (See Note); Tissue Transglutaminase IgA <1.2 U/mL (<4.0)
== END 2021-11-07 02:20 | disposition home or self-care (01) ==
LOC: LBO 02:19
PROVIDERS: PCP Student in an Organized Health Care Education/Training Program; Visit Provider Student in an Organized Health Care Education/Training Program
DX: E55.9 Vitamin D deficiency, unspecified (principal); R79.89 Other specified abnormal findings of blood chemistry; R73.03 Prediabetes; K52.9 Noninfective gastroenteritis and colitis, unspecified; D89.89 Other specified disorders involving the immune mechanism, not elsewhere classified; N17.9 Acute kidney failure, unspecified; Z15.89 Genetic susceptibility to other disease
CPT/HCPCS: 36415; 80053; 80061; 82306; 82784; 83516; 83721; 83036; 84439; 84443

== ENCOUNTER 2021-11-14 15:12 | Outpatient (REF) | payer MEDICAID, SELFPAY ==
[2021-11-14 17:17] LABS: C Diff PCR Positive (Negative)
== END 2021-11-14 15:13 | disposition home or self-care (01) ==
LOC: LBN 15:12
PROVIDERS: PCP Student in an Organized Health Care Education/Training Program; Visit Provider Surgery
DX: A04.72 Enterocolitis due to Clostridium difficile, not specified as recurrent (principal)
CPT/HCPCS: 87493

== ENCOUNTER 2021-11-18 16:46 | Emergency (ER) | payer MEDICAID, SELFPAY ==
[2021-11-18 16:56] VITALS: BP 154/88; PULSE 72; RESP 18; TEMP 37; O2SAT 96
[2021-11-18] MEDS: Vancomycin 125 MG CAP PO (17:40)
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
== END 2021-11-18 17:56 | disposition home or self-care (01) ==
PROVIDERS: Emergency Provider Nurse Practitioner Family; PCP Student in an Organized Health Care Education/Training Program
DX: A04.71 Enterocolitis due to Clostridium difficile, recurrent (principal)
CPT/HCPCS: 99283

== ENCOUNTER 2022-01-28 03:28 | Outpatient (CLI) | payer MEDICAID, SELFPAY ==
[2022-01-28 17:08] LABS: ALT 36 U/L (14-59); Alkaline Phosphatase 128 U/L (46-116); Anion Gap 8.6 mmol/L (3-11); BUN 17 mg/dL (7-18); Bilirubin, Total 0.2 mg/dL (0.2-1.0); CO2 28.4 mmol/L (21.0-32.0); CREATININE 0.8 mg/dL (0.55-1.02); Calcium 9.5 mg/dL (8.5-10.1); Chloride 102 mmol/L (98-107); Cholesterol 263 mg/dL (<200); Estimated GFR 104.15 (mL/min/1.73m2); Glucose 117 mg/dL (74-106); HDL Cholesterol 37 mg/dL (40-60); Potassium 3.8 mmol/L (3.5-5.1); Sodium 139 mmol/L (136-145); TSH (W/Ref FT4) 0.87 uIU/mL (0.36-3.74); Total Protein 8.1 g/dL (6.4-8.2); Triglyceride 593 mg/dL (<150)
[2022-01-28 17:58] LABS: LDL CHOLESTEROL 173 mg/dL (<100)
[2022-01-28 18:11] LABS: AST 27 U/L (15-37)
== END 2022-01-28 03:29 | disposition home or self-care (01) ==
LOC: LBO 03:29
PROVIDERS: PCP Student in an Organized Health Care Education/Training Program; Visit Provider Student in an Organized Health Care Education/Training Program
DX: E86.0 Dehydration; R10.9 Unspecified abdominal pain; A04.72 Enterocolitis due to Clostridium difficile, not specified as recurrent; K52.9 Noninfective gastroenteritis and colitis, unspecified; E03.9 Hypothyroidism, unspecified
CPT/HCPCS: 36415; 80053; 80061; 83721; 84443

== ENCOUNTER 2022-01-29 17:35 | Outpatient (CLI) | payer MEDICAID, SELFPAY | END 2022-01-29 17:36 | disposition home or self-care (01) | LOC: DI.KIM 17:39 | PROVIDERS: PCP Student in an Organized Health Care Education/Training Program; Visit Provider Student in an Organized Health Care Education/Training Program | CPT/HCPCS: 93010 ==

== ENCOUNTER 2022-02-06 15:54 | Outpatient (CLI) | payer MEDICAID, SELFPAY ==
--- NOTE | 2022-02-06 15:45 | RT.EKG_ITS ---
APPROVED REPORT Exam: Resting ECG Reason for Exam: R00.2 Patient Location: O HR:92 bpm ECG Measurements Heart Rate 92 AXIS AL 150 P 46 QRSd 90 QRS 57 QT 348 T 46 QTc 431 Conclusion Sinus rhythm...normal P axis, V-rate 50- 99
== END 2022-02-06 15:55 | disposition home or self-care (01) ==
LOC: DI.KIM 15:56
PROVIDERS: PCP Student in an Organized Health Care Education/Training Program; Visit Provider Student in an Organized Health Care Education/Training Program
DX: R00.2 Palpitations (principal); Z79.899 Other long term (current) drug therapy
CPT/HCPCS: 93010

== ENCOUNTER → 2022-02-27 00:36 | Outpatient (CLI) | payer MEDICAID, SELFPAY ==
--- NOTE | 2022-02-27 08:15 | DI.MRI_ITS ---
Exam(s) MR BRAIN PITUITARY WO/W EXAM: MR BRAIN PITUITARY WO/W CLINICAL HISTORY: evaluate pituitary,? MASS,VISION CHANGES,FAMILY H/O PITUITARY DISEASE, TECHNIQUE: Multiplanar multisequence MRI of the brain was performed. CONTRAST MATERIAL: IV Contrast: mL of Dotarem contrast administered. COMPARISON: No exams were available for comparison FINDINGS: VENTRICLES AND EXTRA AXIAL SPACES: Normal in size and morphology for the patient's age. HEMORRHAGE: None. CEREBRAL PARENCHYMA: No focus of restricted diffusion to suggest acute infarct. No space-occupying le gurinder identified. MIDLINE SHIFT: None. BRAINSTEM/CEREBELLUM: Normal. CALVARIUM: Normal. ENHANCEMENT: No suspicious enhancement identified. VISUALIZED PARANASAL SINUSES/MASTOIDS: Clear. HOH OF SALAZAR: Normal flow void. PITUITARY: Pituitary stalk is midline. The gland demonstrates homogenous T2-weighted signal intensity with homog eneous enhancement. No evidence of macroadenoma or microadenoma. The optic chiasm is unremarkable. The cavernous portions of both carotid arteries are unremarkable. IMPRESSION: 1. Unremarkable MRI of the brain. 2. No evidence a pituitary mass. No evidence of a suprasellar mass. DATA REPOSITORY:
[2022-02-27] MEDS: Gadoterate meglumine 20 ML SYRINGE 17 ML IVP (14:11)
[2022-02-27] MEDS: Normal Saline Flush 10 ML SYR IVP (14:11)
== END ==
PROVIDERS: PCP Student in an Organized Health Care Education/Training Program; Visit Provider Student in an Organized Health Care Education/Training Program
DX: H53.9 Unspecified visual disturbance (principal); R51.9 Headache, unspecified; Z83.49 Family history of other endocrine, nutritional and metabolic diseases
CPT/HCPCS: 70553

== ENCOUNTER 2022-04-10 01:31 | Outpatient (CLI) | payer MEDICAID, SELFPAY ==
[2022-04-10 13:46] LABS: Abs Immature Grans 0.05 10^3/uL (0.0-0.06); Absolute Basophil Count 0.05 10^3/uL (0.0-0.2); Absolute Eosinophil Count 0.21 10^3/uL (0.0-0.7); Absolute Lymphocyte Count 3.97 10^3/uL (1.2-3.4); Absolute Monocyte Count 0.45 10^3/uL (0.1-0.8); Absolute Neutrophil Count 5.65 10^3/uL (1.2-6.7); Basophils % 0.5; HCT 37.2 % (36.0-46.0); HGB 12.7 g/dL (11.2-15.7); Immature Grans % 0.5; Lymphocytes % 38.2; MCH 28.8 pg (27.0-33.0); MCHC 34.1 % (32.0-36.0); MCV 84 fL (80-95); MPV 10.6 fL (8.0-11.0); Monocytes % 4.3; Neutrophils % 54.5; Platelet Count 258 10^3/uL (130-400); RBC 4.41 10^6/uL (3.93-5.22); RDW 12.7 % (11.7-14.6); RDW-SD 38.4 fL; WBC 10.38 10^3/uL (4.4-10.8)
[2022-04-10 14:36] LABS: Iron 56 ug/dL (50-170); Total Iron Binding Capacity 296 ug/dL (250-450); Transferrin Sat 19 % (15-50)
[2022-04-10 14:52] LABS: ALT 44 U/L (14-59); AST 27 U/L (15-37); Alkaline Phosphatase 119 U/L (46-116); BUN 19 mg/dL (7-18); Bilirubin, Total 0.3 mg/dL (0.2-1.0); CREATININE 0.7 mg/dL (0.55-1.02); Calcium 8.9 mg/dL (8.5-10.1); Calculated LDL 121 mg/dL (<100); Chloride 103 mmol/L (98-107); Cholesterol 214 mg/dL (<200); Estimated GFR 122.25 (mL/min/1.73m2); Ferritin 70 ng/mL (8-252); Glucose 104 mg/dL (74-106); HDL Cholesterol 32 mg/dL (40-60); Potassium 3.7 mmol/L (3.5-5.1); Sodium 140 mmol/L (136-145); TSH (W/Ref FT4) 4.09 uIU/mL (0.36-3.74); Total Protein 7.7 g/dL (6.4-8.2); Triglyceride 305 mg/dL (<150)
[2022-04-10 15:16] LABS: FREE T4 0.93 ng/dL (0.76-1.46); Lipase 150 U/L (73-393)
[2022-04-10 15:18] LABS: Bilirubin, Direct < 0.1 mg/dL (0.0-0.2)
== END 2022-04-10 01:32 | disposition home or self-care (01) ==
LOC: LBO 01:32
PROVIDERS: PCP Student in an Organized Health Care Education/Training Program; Referring Provider Student in an Organized Health Care Education/Training Program; Visit Provider Student in an Organized Health Care Education/Training Program
DX: R53.83 Other fatigue (principal); Z86.2 Personal history of diseases of the blood and blood-forming organs and certain disorders involving the immune mechanism; R19.7 Diarrhea, unspecified; E78.1 Pure hyperglyceridemia; E05.00 Thyrotoxicosis with diffuse goiter without thyrotoxic crisis or storm; R51.9 Headache, unspecified; Z83.49 Family history of other endocrine, nutritional and metabolic diseases; K52.9 Noninfective gastroenteritis and colitis, unspecified; R10.9 Unspecified abdominal pain; R79.89 Other specified abnormal findings of blood chemistry
CPT/HCPCS: 36415; 80048; 80061; 80076; 83690; 82728; 83540; 83550; 84439; 84443; 85025

== ENCOUNTER 2022-04-20 14:39 | Outpatient (REF) | payer MEDICAID, SELFPAY ==
[2022-04-20 13:10] LABS: C Diff PCR Positive (Negative)
[2022-04-23 13:43] LABS: Helicobacter pylori Ag, Feces Negative (Negative)
== END 2022-04-20 14:40 | disposition home or self-care (01) ==
LOC: LBN 14:39
PROVIDERS: PCP Student in an Organized Health Care Education/Training Program; Visit Provider Student in an Organized Health Care Education/Training Program
DX: K52.89 Other specified noninfective gastroenteritis and colitis (principal); R10.9 Unspecified abdominal pain; R19.8 Other specified symptoms and signs involving the digestive system and abdomen; A04.72 Enterocolitis due to Clostridium difficile, not specified as recurrent; Z94.9 Transplanted organ and tissue status, unspecified; R19.7 Diarrhea, unspecified
CPT/HCPCS: 87338; 87493

== ENCOUNTER 2022-04-20 18:29 | Emergency (ER) | payer MEDICAID, SELFPAY ==
[2022-04-20 18:31] VITALS: BP 118/76; PULSE 76; RESP 16; TEMP 36.9; O2SAT 99
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
[2022-04-20] MEDS: Vancomycin 125 MG CAP PO (19:45)
== END 2022-04-20 19:46 | disposition home or self-care (01) ==
PROVIDERS: Emergency Provider Physician Assistant; PCP Student in an Organized Health Care Education/Training Program
DX: A04.71 Enterocolitis due to Clostridium difficile, recurrent (principal)
CPT/HCPCS: 99283

== ENCOUNTER 2022-04-23 10:44 | Outpatient (REF) | payer MEDICAID, SELFPAY ==
[2022-04-28 16:07] LABS: Calprotectin <50.0 mcg/g
== END 2022-04-23 10:45 | disposition home or self-care (01) ==
LOC: LBN 10:44
PROVIDERS: PCP Student in an Organized Health Care Education/Training Program; Visit Provider Student in an Organized Health Care Education/Training Program
DX: R19.7 Diarrhea, unspecified (principal); A04.72 Enterocolitis due to Clostridium difficile, not specified as recurrent; K52.9 Noninfective gastroenteritis and colitis, unspecified
CPT/HCPCS: 87329; 83993

== ENCOUNTER 2022-05-18 09:55 | Outpatient (CLI) | payer MEDICAID, SELFPAY ==
--- NOTE | 2022-05-18 09:45 | DI.RAD_ITS ---
Exam(s) XR CHEST 2V PA LATERAL EXAM: XR CHEST 2V PA LATERAL CLINICAL HISTORY: Pleurisy, R09.1, severe episodes of pain; cough, R05.9 TECHNIQUE: 2D digital imaging was performed of the chest. Two images were obtained. PA and lateral views were obtained. COMPARISON: CR XR CHEST 2V PA LATERAL from 06/13/2021 FINDINGS: MEDIASTINUM: Normal. HEART: Normal. PULMONARY VASCULATURE: Normal. LUNGS: Clear. PLEURAL SPACE: No pleural effusion or pneumothorax. BONE:Within normal limits for the patient's age. OTHER FINDINGS:Normal. IMPRESSION: No acute pulmonary findings. DATA REPOSITORY: RADIATION DOSE DELIVERED:
== END 2022-05-18 10:15 ==
LOC: DI 09:55
PROVIDERS: PCP Student in an Organized Health Care Education/Training Program; Visit Provider Student in an Organized Health Care Education/Training Program
DX: R05.9 Cough, unspecified (principal); R09.1 Pleurisy
CPT/HCPCS: 71046

== ENCOUNTER 2022-07-12 15:52 | Emergency (ER) | payer MEDICAID, SELFPAY ==
[2022-07-12 15:55] VITALS: BP 113/70; PULSE 76; RESP 20; TEMP 36.5; O2SAT 98
--- NOTE | 2022-07-12 16:10 | DI.RAD_ITS ---
Exam(s) XR TOE RT GREAT EXAM: XR TOE RT GREAT CLINICAL HISTORY: pain mtp joint, trauma to toe. TECHNIQUE: 2D digital imaging was performed. Three images were obtained. COMPARISON: No exams were available for comparison FINDINGS: BONES: There is an acute nondisplaced fracture at the lateral aspect of the base of the distal phala nx of the great toe. No bony destructive lesion is seen. JOINTS: No dislocation present. SOFT TISSUE: Soft tissue swelling of the great toe. IMPRESSION: Nondisplaced fracture of the lateral aspect of the base of the distal phalanx of the great toe. DATA REPOSITORY: RADIATION DOSE DELIVERED:
--- NOTE | 2022-07-12 16:42 | DI.VRAD_ITS ---
PROCEDURE INFORMATION: Exam: XR Right Toe(s) Exam date and time: 07/12/2022 4:21 PM Age: 26 years old Clinical indication: Toes; Right; Patient HX: Pain mtp joint, trauma to toe TECHNIQUE: Imaging protocol: Radiologic exam of the right toes. Views: Minimum 2 views. COMPARISON: CR RIGHT TIB/FIB 09/02/2016 10:46 AM FINDINGS: Bones/joints: There is a corner fracture of the lateral base of the right great toe distal phalanx. No significant displacement. There is articular involvement along the margin of the lateral articular surface. No dislocation of interphalangeal joint. Soft tissues: Soft tissue swelling. IMPRESSION: Right great toe distal phalanx lateral basal epiphyseal corner fracture. No significant displacement. Dictated and Authenticated by: Mahesh Hudson MD. Ordering:AYLEEN Sierra MD
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
[2022-07-12] MEDS: Acetaminophen 500 MG TAB 1000 MG PO (16:51)
[2022-07-12 16:55] VITALS: BP 113/70; PULSE 76; RESP 20; TEMP 36.5; O2SAT 98
== END 2022-07-12 17:04 | disposition home or self-care (01) ==
PROVIDERS: Emergency Provider Physician Assistant; PCP Student in an Organized Health Care Education/Training Program
DX: S92.422A Displaced fracture of distal phalanx of left great toe, initial encounter for closed fracture (principal); Z86.16 Personal history of COVID-19; X58.XXXA Exposure to other specified factors, initial encounter
CPT/HCPCS: 99283; 73660

== ENCOUNTER 2022-07-17 01:48 | Outpatient (CLI) | payer MEDICAID, SELFPAY ==
[2022-07-17 13:52] LABS: Abs Immature Grans 0.02 10^3/uL (0.0-0.06); Absolute Basophil Count 0.05 10^3/uL (0.0-0.2); Absolute Eosinophil Count 0.24 10^3/uL (0.0-0.7); Absolute Lymphocyte Count 3.16 10^3/uL (1.2-3.4); Absolute Monocyte Count 0.44 10^3/uL (0.1-0.8); Absolute Neutrophil Count 4.47 10^3/uL (1.2-6.7); Basophils % 0.6; Eosinophils % 2.9; HCT 38.5 % (36.0-46.0); HGB 13.3 g/dL (11.2-15.7); Immature Grans % 0.2; Lymphocytes % 37.7; MCHC 34.5 % (32.0-36.0); MCV 84 fL (80-95); MPV 10.4 fL (8.0-11.0); Monocytes % 5.3; Neutrophils % 53.3; Platelet Count 243 10^3/uL (130-400); RBC 4.58 10^6/uL (3.93-5.22); RDW 12.8 % (11.7-14.6); RDW-SD 38.7 fL; WBC 8.38 10^3/uL (4.4-10.8)
[2022-07-17 14:17] LABS: ALT 30 U/L (14-59); AST 16 U/L (15-37); Albumin 4.3 g/dL (3.4-5.0); Alkaline Phosphatase 105 U/L (46-116); Anion Gap 7.4 mmol/L (3-11); BUN 13 mg/dL (7-18); Bilirubin, Total 0.4 mg/dL (0.2-1.0); CO2 26.6 mmol/L (21.0-32.0); CREATININE 0.7 mg/dL (0.55-1.02); Calcium 9.3 mg/dL (8.5-10.1); Calculated LDL 165 mg/dL (<100); Chloride 104 mmol/L (98-107); Cholesterol 261 mg/dL (<200); Estimated GFR 122.25 (mL/min/1.73m2); Glucose 115 mg/dL (74-106); HDL Cholesterol 40 mg/dL (40-60); Magnesium 1.9 mg/dL (1.8-2.4); Potassium 3.8 mmol/L (3.5-5.1); Sodium 138 mmol/L (136-145); TSH (W/Ref FT4) 0.18 uIU/mL (0.36-3.74); Triglyceride 280 mg/dL (<150)
[2022-07-17 14:31] LABS: Vitamin D 25 Total 17.8 ng/mL (30-100)
[2022-07-17 14:43] LABS: FREE T4 1.07 ng/dL (0.76-1.46)
[2022-07-17 22:25] LABS: T3,Free 4.4 pg/mL (2.8-5.3)
== END 2022-07-17 01:49 | disposition home or self-care (01) ==
LOC: LBO 01:48
PROVIDERS: Absent Provider Student in an Organized Health Care Education/Training Program; PCP Student in an Organized Health Care Education/Training Program; Referring Provider Student in an Organized Health Care Education/Training Program; Visit Provider Student in an Organized Health Care Education/Training Program
DX: E03.9 Hypothyroidism, unspecified (principal); E06.9 Thyroiditis, unspecified; D64.9 Anemia, unspecified; E55.9 Vitamin D deficiency, unspecified; R10.9 Unspecified abdominal pain; K52.9 Noninfective gastroenteritis and colitis, unspecified; K92.1 Melena; R19.7 Diarrhea, unspecified; E86.0 Dehydration; R73.09 Other abnormal glucose; E78.2 Mixed hyperlipidemia
CPT/HCPCS: 36415; 80053; 80061; 82306; 83735; 84439; 84443; 84481; 85025

== ENCOUNTER 2022-07-30 15:39 | Outpatient (REF) | payer MEDICAID, SELFPAY ==
[2022-07-30 20:39] LABS: C Diff PCR Negative (Negative)
[2022-07-30 22:36] LABS: Lab Add On Test DONE
== END 2022-07-30 15:40 | disposition home or self-care (01) ==
LOC: LBN 15:39
PROVIDERS: PCP Student in an Organized Health Care Education/Training Program; Visit Provider Student in an Organized Health Care Education/Training Program
DX: R19.7 Diarrhea, unspecified (principal); R10.9 Unspecified abdominal pain; Z86.19 Personal history of other infectious and parasitic diseases
CPT/HCPCS: 87493; 82272; 83630; 83993

== ENCOUNTER 2022-08-05 13:23 | Outpatient (REF) | payer MEDICAID, SELFPAY | END 2022-08-05 13:24 | disposition home or self-care (01) | LOC: LBN 13:23 | PROVIDERS: PCP Student in an Organized Health Care Education/Training Program; Referring Provider Nurse Practitioner; Visit Provider Nurse Practitioner | DX: J02.9 Acute pharyngitis, unspecified (principal) | CPT/HCPCS: 87070 ==

== ENCOUNTER 2022-09-04 16:28 | Outpatient (CLI) | payer MEDICAID, SELFPAY ==
[2022-09-04 16:45] LABS: Abs Immature Grans 0.06 10^3/uL (0.0-0.06); Absolute Basophil Count 0.04 10^3/uL (0.0-0.2); Absolute Eosinophil Count 0.22 10^3/uL (0.0-0.7); Absolute Lymphocyte Count 2.99 10^3/uL (1.2-3.4); Absolute Monocyte Count 0.53 10^3/uL (0.1-0.8); Basophils % 0.3; Eosinophils % 1.8; HCT 34.9 % (36.0-46.0); HGB 12.2 g/dL (11.2-15.7); Immature Grans % 0.5; Lymphocytes % 24.9; MCH 29.7 pg (27.0-33.0); MCV 85 fL (80-95); MPV 10.8 fL (8.0-11.0); Monocytes % 4.4; Neutrophils % 68.1; Platelet Count 208 10^3/uL (130-400); RBC 4.11 10^6/uL (3.93-5.22); RDW 13.2 % (11.7-14.6); RDW-SD 40.8 fL; WBC 12.02 10^3/uL (4.4-10.8)
[2022-09-04 16:49] LABS: Absolute Neutrophil Count 8.19 10^3/uL (1.2-6.7)
[2022-09-04 17:50] LABS: Hemoglobin A1C 4.5 % (<5.7)
[2022-09-04 17:55] LABS: Iron 77 ug/dL (50-170); Total Iron Binding Capacity 340 ug/dL (250-450); Transferrin Sat 23 % (15-50)
[2022-09-04 18:01] LABS: Anion Gap 10.3 mmol/L (3-11); BUN 11 mg/dL (7-18); CO2 23.7 mmol/L (21.0-32.0); CREATININE 0.8 mg/dL (0.55-1.02); Calcium 9.5 mg/dL (8.5-10.1); Chloride 102 mmol/L (98-107); Glucose 122 mg/dL (74-106); Potassium 3.9 mmol/L (3.5-5.1); Sodium 136 mmol/L (136-145); TSH (W/Ref FT4) 1.82 uIU/mL (0.36-3.74)
[2022-09-04 18:14] LABS: Vitamin D 25 Total 18.8 ng/mL (30-100)
[2022-09-05 22:43] LABS: T3,Free 3.3 pg/mL (2.8-5.3)
[2022-09-08 09:35] LABS: Apolipoprotein B, S 146 mg/dL
== END 2022-09-04 16:29 | disposition home or self-care (01) ==
LOC: LBO 16:28
PROVIDERS: PCP Student in an Organized Health Care Education/Training Program; Visit Provider Internal Medicine Endocrinology, Diabetes & Metabolism
DX: R00.2 Palpitations (principal); E78.2 Mixed hyperlipidemia; U07.1 COVID-19; F43.10 Post-traumatic stress disorder, unspecified; E28.2 Polycystic ovarian syndrome; E06.3 Autoimmune thyroiditis; E55.9 Vitamin D deficiency, unspecified
CPT/HCPCS: 36415; 80048; 82172; 82306; 83036; 83540; 83550; 84443; 84481; 85025

== ENCOUNTER 2022-11-12 12:16 | Outpatient (CLI) | payer MEDICAID, SELFPAY ==
[2022-11-12 12:01] LABS: Hemoglobin A1C 4.6 % (<5.7)
[2022-11-12 12:35] LABS: Iron 89 ug/dL (50-170)
[2022-11-12 12:36] LABS: ALT 18 U/L (14-59); AST 12 U/L (15-37); Albumin 3.2 g/dL (3.4-5.0); Alkaline Phosphatase 66 U/L (46-116); Anion Gap 10.6 mmol/L (3-11); BUN 9 mg/dL (7-18); Bilirubin, Direct 0.1 mg/dL (0.0-0.2); Bilirubin, Total 0.3 mg/dL (0.2-1.0); CO2 24.4 mmol/L (21.0-32.0); CREATININE 0.5 mg/dL (0.55-1.02); Calcium 9.2 mg/dL (8.5-10.1); Chloride 101 mmol/L (98-107); Estimated GFR 131.75 (mL/min/1.73m2); Glucose 91 mg/dL (74-106); Lipase 32 U/L (16-77); Potassium 3.8 mmol/L (3.5-5.1); Sodium 136 mmol/L (136-145); Total Protein 7.2 g/dL (6.4-8.2)
[2022-11-12 12:45] LABS: TSH 0.58 uIU/mL (0.36-3.74)
[2022-11-12 15:15] LABS: Vitamin D 25 Total 19.7 ng/mL (30-100)
[2022-11-14 10:12] LABS: Apolipoprotein B, S 174 mg/dL
== END 2022-11-12 12:17 | disposition home or self-care (01) ==
LOC: LBO 12:17
PROVIDERS: PCP Student in an Organized Health Care Education/Training Program; Visit Provider Internal Medicine Endocrinology, Diabetes & Metabolism
DX: R10.9 Unspecified abdominal pain (principal); R53.83 Other fatigue; K76.89 Other specified diseases of liver; N17.9 Acute kidney failure, unspecified; E03.9 Hypothyroidism, unspecified; R74.8 Abnormal levels of other serum enzymes; E55.9 Vitamin D deficiency, unspecified; R79.89 Other specified abnormal findings of blood chemistry; Z79.899 Other long term (current) drug therapy; Z86.2 Personal history of diseases of the blood and blood-forming organs and certain disorders involving the immune mechanism
CPT/HCPCS: 36415; 80048; 80076; 82172; 82306; 83690; 83036; 83540; 84439; 84443

== ENCOUNTER 2022-12-12 14:35 | Emergency (ER) | payer MEDICAID, SELFPAY ==
[2022-12-12] VITALS (27 sets, daily range): BP systolic 104–152; BP diastolic 43–95; PULSE 90–112; RESP 18; TEMP 36.5; O2SAT 97–100
[2022-12-12] MEDS: Normal Saline 1,000 ML 1000 ML IV ×2 (15:00→16:03)
[2022-12-12] MEDS: Mylanta Suspension 30 ML CUP PO (15:00)
[2022-12-12] MEDS: Metoclopramide 10 MG/2 ML VIAL IVP (15:00)
[2022-12-12 15:19] LABS: Abs Immature Grans 0.25 10^3/uL (0.0-0.06); Absolute Eosinophil Count 0.07 10^3/uL (0.0-0.7); Basophils % 0.5; Eosinophils % 0.4; HCT 34.2 % (36.0-46.0); HGB 11.5 g/dL (11.2-15.7); Immature Grans % 1.5; Lymphocytes % 8.7; MCH 29.8 pg (27.0-33.0); MCHC 33.6 % (32.0-36.0); MCV 89 fL (80-95); MPV 11.6 fL (8.0-11.0); Monocytes % 4.1; Neutrophils % 84.8; Platelet Count 189 10^3/uL (130-400); RBC 3.86 10^6/uL (3.93-5.22); RDW 13.2 % (11.7-14.6); RDW-SD 43.1 fL; WBC 17.15 10^3/uL (4.4-10.8)
[2022-12-12 15:20] LABS: Absolute Basophil Count 0.09 10^3/uL (0.0-0.2); Absolute Lymphocyte Count 1.49 10^3/uL (1.2-3.4); Absolute Neutrophil Count 14.54 10^3/uL (1.2-6.7)
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
[2022-12-12 15:41] LABS: ALT 17 U/L (14-59); AST 25 U/L (15-37); Albumin 3.4 g/dL (3.4-5.0); Alkaline Phosphatase 76 U/L (46-116); Anion Gap 12.8 mmol/L (3-11); BUN 13 mg/dL (7-18); Bilirubin, Total 0.5 mg/dL (0.2-1.0); CO2 22.2 mmol/L (21.0-32.0); CREATININE 0.5 mg/dL (0.55-1.02); Calcium 9.5 mg/dL (8.5-10.1); Chloride 103 mmol/L (98-107); Estimated GFR 131.75 (mL/min/1.73m2); Glucose 92 mg/dL (74-106); Lipase 28 U/L (16-77); Magnesium 1.5 mg/dL (1.8-2.4); Sodium 138 mmol/L (136-145); Total Protein 7.3 g/dL (6.4-8.2)
[2022-12-12 15:42] LABS: Potassium 4.6 mmol/L (3.5-5.1)
[2022-12-12 16:03] LABS: Bilirubin Small (Negative); Blood Negative (Negative); Clarity Clear (Clear); Glucose Negative (Negative); Ketones 80 mg/dL (Negative); Leukocyte Esterase Negative (Negative); Nitrite Negative (Negative); Specific Gravity >= 1.030 (1.005-1.025); Urobilinogen 0.2 mg/dL (Up to 0.2)
--- NOTE | 2022-12-12 16:12 | W.EDPROG ---
Date of service: 12/12/22 Time of Service: 16:12 Medical Decision Making Care assumed from provider (Raul Mckeon, HIGINIO) Please see their initial HPI, PE, and documentation. Discussed patient details and case and pending workup and disposition. Patient is hemodynamically stable, and alert and oriented. At the time of signout awaiting urinalysis. CBC shows white blood cell count of 17.15, absolute neutrophils 14.54 normal lymphocytes monocytes, sodium 138 potassium 4.6 anion gap 8 creatinine slightly low at 1.5 lipase within normal limits, urinalysis shows trace protein slightly high ketones, small bilirubin, negative for nitrites or leukocytes no evidence for UTI however there is squamous contamination. Will attempt p.o. trial with some p.o. magnesium patient has received Reglan, 1 L of fluid I, Mylanta and Acetaminophen IVPB. On patient reevaluation she is still slightly tachycardic at 111, second liter of normal saline was started. Discussed home care and she reports Reglan. Prescription. Discussed return instructions and to follow-up with TRANSPORT COORDINATOR/PCP. Given discharge she did tolerate the p.o. magnesium with out any vomiting. This text was generated using [employer] dictation system, please disregard any oddities of phrase or misspellings. Patient given 2 tablets of Reglan 10mg to go. This text was generated using [employer] dictation system, please disregard any oddities of phrase or misspellings. Medical Records Medical records reviewed: Yes I reviewed the patient's medical records. Medical records narrative: Past medical history of Graves' disease, hypothyroidism Jordan's thyroiditis, ADHD, anxiety Lab Data Lab results reviewed: Yes I reviewed the patient's lab results. Labs: Laboratory Tests Range/Units 12/12/22 12/12/22 12/12/22 15:00 15:00 15:52 WBC (4.4-10.8) 10^3/uL 17.15 H RBC (3.93-5.22) 10^6/uL 3.86 L Hgb (11.2-15.7) g/dL 11.5 Hct (36.0-46.0) % 34.2 L MCV (80-95) fL 89 MCH (27.0-33.0) pg 29.8 MCHC (32.0-36.0) % 33.6 RDW (11.7-14.6) % 13.2 Plt Count (130-400) 10^3/uL 189 MPV (8.0-11.0) fL 11.6 H Immature Gran % 1.5 Neutrophils % 84.8 Lymphocytes % 8.7 Monocytes % 4.1 Eosinophils % 0.4 Basophils % 0.5 Nucleated RBC % (0.0-0.3) % 0.0 Absolute Neutrophils (1.2-6.7) 10^3/uL 14.54 H Absolute Lymphocytes (1.2-3.4) 10^3/uL 1.49 Absolute Monocytes (0.1-0.8) 10^3/uL 0.70 Absolute Eosinophils (0.0-0.7) 10^3/uL 0.07 Absolute Basophils (0.0-0.2) 10^3/uL 0.09 Sodium (136-145) mmol/L 138 Potassium (3.5-5.1) mmol/L 4.6 Chloride (98-107) mmol/L 103 Carbon Dioxide (21.0-32.0) mmol/L 22.2 Anion Gap (3-11) mmol/L 12.8 H BUN (7-18) mg/dL 13 Creatinine (0.55-1.02) mg/dL 0.5 L Est GFR (CKD-EPI 2020) (mL/min/1.73m2) 131.75 Glucose (74-106) mg/dL 92 Calcium (8.5-10.1) mg/dL 9.5 Magnesium (1.8-2.4) mg/dL 1.5 L Total Bilirubin (0.2-1.0) mg/dL 0.5 AST (15-37) U/L 25 ALT (14-59) U/L 17 Alkaline Phosphatase (46-116) U/L 76 Total Protein (6.4-8.2) g/dL 7.3 Albumin (3.4-5.0) g/dL 3.4 Lipase (16-77) U/L 28 Urine Color (Yellow) Yellow Urine Clarity (Clear) Clear Urine pH (5-8) 6.0 Ur Specific [place] (1.005-1.025) >= 1.030 H Urine Protein (Negative) mg/dL Trace H Urine Ketones (Negative) mg/dL 80 H Urine Blood (Negative) Negative Urine Nitrite (Negative) Negative Urine Bilirubin (Negative) Small H Urine Urobilinogen (Up to 0.2) mg/dL 0.2 Ur Leukocyte Esterase (Negative) Negative Urine RBC (0-2) HPF 0-2 Urine WBC (0-5) HPF 0-2 Ur Epithelial Cells (Negative) HPF Moderate Urine Crystals (Negative) HPF Negative Urine Bacteria (Negative) HPF Few Urine Casts (Negative) LPF Negative Urine Mucus (Negative) Heavy Ur Culture Indicated? No/Sq. Contamination Urine Glucose (Negative) mg/dL Negative Sign Out Sign Out Data: Sign Out Comment: Patient pending review of labs and reassessment after fluids and medications. Last updated by Christiano Mckeon NP at 12/12/22 15:42 Discharge Plan Disposition Patient Disposition: Home Condition: Improving Discharge Details Clinical Impression: Nausea and vomiting in Primary Care Provider: Trinidad Patrick ED Provider: Juanita Stevenson Home Meds and New Rx's Prescriptions: New metoclopramide HCl [Reglan] 10 mg tablet 10 mg PO Q6H MDD 60mg PRN (Reason: nausea and vomiting) 7 Days Qty: 28 0RF Rx Instructions: Take 1 tablet by mouth up to 4 times daily as needed for nausea and vomiting. No Action Bio-K plus 50 billion cell capsule,delayed release(DR/EC) 1 cap PO DAILY Qty: 90 0RF Rx Instructions: Trial for probiotics Lactobacillus acidoph-L.bulgar [Floranex] 100 million cell granules in packet 1 packet PO TID Qty: 90 1RF Rx Instructions: Trial for one month, start with 1/day. sucralfate 1 gram tablet 1 g PO BID & HS Qty: 60 1RF Rx Instructions: Trial for severe GERD, ulcerous symptoms. Mash into slurry. (DME) Surgical shoe/low boot S/M See Rx Instructions .Route .MEDSUPPLY Qty: 1 0RF Rx Instructions: As best dispensed: [employer]/MedSurgDUO/ShortAirMedBoot polymyxin B sulf-trimethoprim 10,000 unit- 1 mg/mL drops 1 drp ophthalmic (eye) QID Qty: 10 0RF Rx Instructions: OU epinephrine [EpiPen 2-Gael] 0.3 mg/0.3 mL auto-injector 0.3 mg IM ONCE Qty: 1 0RF Rx Instructions: Administer as directed for allergic reaction ondansetron 4 mg tablet,disintegrating 4 mg PO Q8H MDD 3 tabs PRN (Reason: nausea and vomiting) Qty: 20 1RF metformin 500 mg tablet extended release 24 hr 500 mg PO BID Qty: 60 1RF Rx Instructions: Re-start @ lower dose .. trial with food albuterol sulfate [ProAir HFA] 90 mcg/actuation HFA aerosol inhaler 1 - 2 puff Inhalation Q4-6H PRN Qty: 1 1RF Rx Instructions: DISPENSE ALBUTEROL INHALER BRAND COVERED BY INSURANCE acetaminophen 500 mg/15 mL liquid 1,000 mg PO BID & HS PRN (Reason: fever or pain) Qty: 237 2RF [id number] tab PO BID Patient Comments: metformin 750 mg tablet extended release 24 hr 750 mg PO BID Hold Instructions: Adverse Reaction Rx Instructions: 06/30/21 per endocrinology at [facility] – [place]. starte and can increase to bid as tolerated Culturelle Probiotic 12 billion cell tablet,chewable 1 tab PO DAILY Qty: 90 1RF Rx Instructions: Trial probiotic icosapent ethyl [Vascepa] 1 gram capsule 1 g PO BID Qty: 180 1RF Hold Instructions: Formulary/Insurance Rx Instructions: Refilling per [facility] Endo. Pt still breast-feeding. OB Complete One 40-10-1-300 mg capsule 1 cap PO DAILY Qty: 90 3RF Hold Instructions: Adverse Reaction Rx Instructions: take with food Probiotic 3 billion cell capsule 3,000 mmu cells PO DAILY Qty: 90 3RF Rx Instructions: administer with a meal levothyroxine 125 mcg capsule 137 mcg PO DAILY Rx Instructions: [facility] - Endo GOAL TO Keep TSH 0.5-2 PER [facility] lisdexamfetamine 40 mg capsule 40 mg PO DAILY MDD 60mg Qty: 30 0RF Hold Instructions: trialing diff doses Rx Instructions: Continue @ 40mg, with possible trial 60mg. lisdexamfetamine 20 mg capsule 20 mg PO DAILY MDD 60mg Qty: 10 0RF Hold Instructions: trialing diff doses Patient Comments: not taking Rx Instructions: Trial 60mg when working on project. Discharge Instructions Instructions: Acute Nausea and Vomiting (ED) Additional Instructions: Please take the nausea medication as directed. Small frequent meals, keep yourself hydrated. Follow up with TRANSPORT COORDINATOR/primary care provider in 3-5 days if needed. Return to ED sooner if any worsening vomiting unable to anything down for 12 to 24 hours, fever, abdominal pain or concerns. Increase oral fluids. You may take Tylenol with food every 4-6 hours as needed for pain and swelling. Referrals: Trinidad Patrick DO [Primary Care Provider] - 2 weeks Discharge Data Discharge Date/Time-TO BE ENTERED AT DEPARTURE: 12/12/22 18:15
[2022-12-12 16:15] LABS: Bacteria Few HPF (Negative); C & S Indicated? No/Sq. Contamination; Casts Negative LPF (Negative); Crystals Negative HPF (Negative); Epithelial Cells Moderate HPF (Negative); Mucus Heavy (Negative); RBC 0-2 HPF (0-2); WBC 0-2 HPF (0-5)
[2022-12-12] MEDS: Magnesium Oxide 400 MG TAB PO (16:22)
[2022-12-12] MEDS: Metoclopramide 10 MG/2 ML VIAL 5 MG IVP (17:45)
[2022-12-12] MEDS: Metoclopramide 10 MG TAB 20 MG PO (18:15)
== END 2022-12-12 18:15 | disposition home or self-care (01) ==
PROVIDERS: Nurse Practitioner Family; Emergency Provider Registered Nurse Emergency; PCP Student in an Organized Health Care Education/Training Program
DX: O21.9 Vomiting of pregnancy, unspecified (principal); Z3A.22 22 weeks gestation of pregnancy
CPT/HCPCS: 80053; 83690; 96361; 96365; 96375; 96376; 99284; 81003; 81015; 83735; 85025; J0131; J2765

== ENCOUNTER 2023-01-12 02:49 | Outpatient (CLI) | payer MEDICAID, SELFPAY ==
[2023-01-12 17:02] LABS: Hemoglobin A1C 4.7 % (<5.7)
[2023-01-12 18:42] LABS: TSH (W/Ref FT4) 0.68 uIU/mL (0.36-3.74)
== END 2023-01-12 02:50 | disposition home or self-care (01) ==
LOC: LBO 02:49
PROVIDERS: Internal Medicine Endocrinology, Diabetes & Metabolism; Absent Provider Student in an Organized Health Care Education/Training Program; PCP Student in an Organized Health Care Education/Training Program; Visit Provider Student in an Organized Health Care Education/Training Program
DX: D89.89 Other specified disorders involving the immune mechanism, not elsewhere classified (principal); E03.9 Hypothyroidism, unspecified; E05.00 Thyrotoxicosis with diffuse goiter without thyrotoxic crisis or storm; E06.3 Autoimmune thyroiditis; R79.89 Other specified abnormal findings of blood chemistry; E28.2 Polycystic ovarian syndrome; E55.9 Vitamin D deficiency, unspecified
CPT/HCPCS: 36415; 82306; 83036; 84443

== ENCOUNTER 2023-05-21 15:16 | Outpatient (CLI) | payer MEDICAID, SELFPAY ==
[2023-05-21 15:44] LABS: Hemoglobin A1C 4.9 % (<5.7)
[2023-05-21 16:29] LABS: Anion Gap 11.2 mmol/L (3-11); BUN 14 mg/dL (7-18); CO2 26.8 mmol/L (21.0-32.0); CREATININE 0.7 mg/dL (0.55-1.02); Calcium 9.4 mg/dL (8.5-10.1); Calculated LDL 156 mg/dL (<100); Chloride 103 mmol/L (98-107); Cholesterol 252 mg/dL (<200); Estimated GFR 121.49 (mL/min/1.73m2); Glucose 90 mg/dL (74-106); HDL Cholesterol 41 mg/dL (40-60); Potassium 3.9 mmol/L (3.5-5.1); Sodium 141 mmol/L (136-145); TSH (W/Ref FT4) 0.01 uIU/mL (0.36-3.74); Triglyceride 277 mg/dL (<150)
[2023-05-21 16:40] LABS: Vitamin D 25 Total 18.5 ng/mL (30-100)
[2023-05-21 17:00] LABS: FREE T4 1.01 ng/dL (0.76-1.46)
== END 2023-05-21 15:17 | disposition home or self-care (01) ==
LOC: LBO 15:16
PROVIDERS: PCP Student in an Organized Health Care Education/Training Program; Visit Provider Internal Medicine Endocrinology, Diabetes & Metabolism
DX: E06.3 Autoimmune thyroiditis (principal); E28.2 Polycystic ovarian syndrome; E55.9 Vitamin D deficiency, unspecified; E78.49 Other hyperlipidemia; R73.09 Other abnormal glucose
CPT/HCPCS: 36415; 80048; 80061; 82306; 83036; 84439; 84443

== ENCOUNTER 2023-07-15 03:04 | Outpatient (CLI) | payer MEDICAID, SELFPAY ==
[2023-07-15 17:35] LABS: Triglyceride 482 mg/dL (<150)
[2023-07-15 17:43] LABS: TSH (W/Ref FT4) 1.05 uIU/mL (0.36-3.74)
[2023-07-15 18:01] LABS: Vitamin D 25 Total 16.8 ng/mL (30-100)
[2023-07-15 18:26] LABS: LDL CHOLESTEROL 161 mg/dL (<100)
== END 2023-07-15 03:05 | disposition home or self-care (01) ==
LOC: LBO 03:04
PROVIDERS: Absent Provider Student in an Organized Health Care Education/Training Program; PCP Student in an Organized Health Care Education/Training Program; Visit Provider Student in an Organized Health Care Education/Training Program
DX: K90.9 Intestinal malabsorption, unspecified (principal); E06.9 Thyroiditis, unspecified; R79.89 Other specified abnormal findings of blood chemistry; E78.1 Pure hyperglyceridemia; E03.9 Hypothyroidism, unspecified; Z13.220 Encounter for screening for lipoid disorders
CPT/HCPCS: 36415; 82306; 83721; 84443; 84478

== ENCOUNTER 2023-08-06 21:23 | Emergency (ER) | payer MEDICAID, SELFPAY ==
[2023-08-06 21:28] VITALS: BP 156/84; PULSE 98; RESP 18; TEMP 36.9; O2SAT 95
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
[2023-08-06 22:40] VITALS: BP 120/75
[2023-08-06 22:47] LABS: Abs Immature Grans 0.07 10^3/uL (0.0-0.06); HCT 39.8 % (36.0-46.0); HGB 13.6 g/dL (11.2-15.7); MCH 29.1 pg (27.0-33.0); MCHC 34.2 % (32.0-36.0); MCV 85 fL (80-95); Platelet Count 249 10^3/uL (130-400); RBC 4.68 10^6/uL (3.93-5.22); RDW 13.8 % (11.7-14.6); RDW-SD 42.5 fL; WBC 10.61 10^3/uL (4.4-10.8)
[2023-08-06 23:04] LABS: Absolute Basophil Count 0.11 10^3/uL (0.0-0.2); Absolute Lymphocyte Count 4.77 10^3/uL (1.2-3.4); Absolute Monocyte Count 0.53 10^3/uL (0.1-0.8); Atypical Lymphocytes % 5
[2023-08-06 23:05] LABS: Diff Comment Diff Reviewed; RBC Morphology Normal
[2023-08-06] MEDS: Normal Saline - Diluent 50 ML VIAL IJ (23:05)
[2023-08-06] MEDS: Omnipaque 350 MG/ML 100 ML BTL IJ (23:08)
[2023-08-06 23:11] LABS: ALT 68 U/L (14-59); AST 33 U/L (15-37); Albumin 4.1 g/dL (3.4-5.0); Alkaline Phosphatase 111 U/L (46-116); Anion Gap 10.8 mmol/L (3-11); BUN 15 mg/dL (7-18); Bilirubin, Total 0.3 mg/dL (0.2-1.0); CO2 27.2 mmol/L (21.0-32.0); CREATININE 0.6 mg/dL (0.55-1.02); Calcium 9.8 mg/dL (8.5-10.1); Chloride 102 mmol/L (98-107); Estimated GFR 126.09 (mL/min/1.73m2); Glucose 101 mg/dL (74-106); Potassium 4.2 mmol/L (3.5-5.1); Sodium 140 mmol/L (136-145); TSH (W/Ref FT4) 0.73 uIU/mL (0.36-3.74); Total Protein 8.2 g/dL (6.4-8.2)
[2023-08-06 23:18] LABS: HCG Quant, Pregnancy < 1 mIU/mL (1-3)
--- NOTE | 2023-08-06 23:39 | DI.CT_ITS ---
Exam(s) CT BRAIN NECK CTA EXAM: CT BRAIN NECK CTA CLINICAL HISTORY: L facial L shoulder paresthesias, L ear pain. TECHNIQUE: Imaging Protocol: Axial CT angiography was performed with multi-slice acquisition and mu lti-planar and/or 3D reconstructions. CONTRAST MATERIAL: Intravenous: Omnipaque 350 Contrast volume:structured data in ml COMPARISON: CT CT ABDOMEN PELVIS WO from 09/07/2021 FINDINGS: CTA Neck W: Aortic arch anatomy: The aortic arch anatomy is conventional and there is no significant stenosis at the origin of the great vessels off of the aortic arch. No intimal flap evident. Anterior circulation: Both common carotid arteries ascend with normal luminal diameters. At the level the carotid bulbs and proximal internal carotid arteries there is no significant plaque and no hemodynamically significant stenosis evident. Posterior circulation: Both vertebral arteries originate in conventional fashion off of the subclavian arteries and there is no obvious stenosis at the origin of the vertebral arteries. Both vertebral arteries exhibit normal luminal diameters within the foramen transversarium. Both vertebral arteries contribute to the formation of the basilar artery at the skull base. CTA Brain W: Anterior circulation: Both internal carotid arteries are patent in the skull base-carotid canals as well as within the cave rnous sinuses. The supraclinoid aspects of the ICAs are patent. Both A1 segments are patent as are the anterior cer ebral arteries and there is no evidence of aneurysm at the level of the anterior communicating artery . Both middle cerebral arteries are patent with no evidence of significant stenosis nor intraluminal th rombus. There also no aneurysms of these vessels. Posterior circulation: The basilar artery ascends in the midline. Distally it gives off patent bilateral superior cerebella r arteries. Above this level the basilar artery terminates as patent bilateral posterior cerebral arteries. There is no evidence of aneurysm at the tip of the basilar artery nor elsewhere in the [id number] is. CT BRAIN: There is no evidence of intracranial hemorrhage, mass effect, or shift of midline structures. There are no extra-axial fluid collections. Ventricles are not enlarged or shifted. There are no ring enh ancing lesions in the brain and no abnormal meningeal enhancement. IMPRESSION: 1. Patent carotid arteries in the neck. No hemodynamically significant stenosis. 2. Patent vertebral arteries. 3. Patent intracranial arteries. 4. No acute intracranial findings. No ring enhancing lesions in the brain and no abnormal meningeal enhancement. RADIATION DOSE DELIVERED: Total DLP DATA REPOSITORY: All CT scans at this facility are submitted to the National Radiology Data Registry (NRDR) Dose Index Registry (DIR) with the [employer] (ACR). RADIATION OPTIMIZATION: All CT scans at this facility use at least one of these dose optimization te chniques: automated exposure control; mA and/or kV adjustment per patient size (includes targeted exa ms where dose is matched to clinical indication); or iterative reconstruction.
[2023-08-07] VITALS: BP 140/62; PULSE 80; O2SAT 98
--- NOTE | 2023-08-07 00:38 | DI.VRAD_ITS ---
PROCEDURE INFORMATION: Exam: CTA Head With Contrast, Arteriography Exam date and time: 08/06/2023 11:09 PM Age: 27 years old Clinical indication: Other: L facial \T\ L shoulder paresthesias, L ear pain TECHNIQUE: Imaging protocol: Computed tomographic angiography of the head with contrast. Exam focused on the arteries. 3D rendering (Not supervised by radiologist): MIP and/or 3D reconstructed images were created by the technologist. Contrast material: OMNIPAQUE 350; Contrast volume: 85 ml; Contrast route: INTRAVENOUS (IV); COMPARISON: MR BRAIN PITUITARY WO/W 02/27/2022 1:50 PM FINDINGS: ANTERIOR CIRCULATION: Right internal carotid artery: Intracranial segment is patent with no significant stenosis. No aneurysm. Right middle cerebral artery: No occlusion or significant stenosis. No aneurysm. Right anterior cerebral artery: No occlusion or significant stenosis. No aneurysm. Left internal carotid artery: Intracranial segment is patent with no significant stenosis. No aneurysm. Left middle cerebral artery: No occlusion or significant stenosis. No aneurysm. Left anterior cerebral artery: No occlusion or significant stenosis. No aneurysm. POSTERIOR CIRCULATION: Right vertebral artery: No occlusion or significant stenosis. No aneurysm. Left vertebral artery: No occlusion or significant stenosis. No aneurysm. Basilar artery: No occlusion or significant stenosis. No aneurysm. Right posterior cerebral artery: No occlusion or significant stenosis. No aneurysm. Left posterior cerebral artery: No occlusion or significant stenosis. No aneurysm. Brain: Unremarkable cerebrum, cerebellum, and brainstem. Cerebral ventricles: No ventriculomegaly. Auditory system: Middle ear spaces are unremarkable bilaterally. External auditory canals are unremarkable bilaterally. Paranasal sinuses: Right maxillary sinus mucoperiosteal thickening. No sinus air-fluid levels. Bones/joints: Mastoid bones are well aerated. Soft tissues: Unremarkable. IMPRESSION: 1. Unremarkable cerebral arterial anatomy. 2. Venous sinuses are patent and opacify normally. 3. Unremarkable cerebrum, cerebellum, and brainstem. 4. Unremarkable appearance of mastoid air cells, middle ear spaces, and external auditory canals. PROCEDURE INFORMATION: Exam: CTA Neck With Contrast Exam date and time: 08/06/2023 11:09 PM Age: 27 years old Clinical indication: Other: L facial \T\ L shoulder paresthesias, L ear pain TECHNIQUE: Imaging protocol: Computed tomographic angiography of the neck with contrast. Exam focused on the cervical segments of the vasculature. 3D rendering (Not supervised by radiologist): MIP and/or 3D reconstructed images were created by the technologist. Contrast material: OMNIPAQUE 350; Contrast volume: 85 ml; Contrast route: INTRAVENOUS (IV); COMPARISON: CT NECK WITH CONTRAST 03/15/2017 3:28 PM FINDINGS: Right common carotid artery: No stenosis. No dissection or occlusion. Right internal carotid artery: No stenosis of the extracranial segment. No dissection or occlusion. Right external carotid artery: No occlusion or stenosis of the origin. Left common carotid artery: No stenosis. No dissection or occlusion. Left internal carotid artery: No stenosis of the extracranial segment. No dissection or occlusion. Left external carotid artery: No occlusion or stenosis of the origin. Right vertebral artery: No stenosis. No dissection or occlusion. Left vertebral artery: No stenosis. No dissection or occlusion. Aorta: Aortic arch is unremarkable. Soft tissues: Soft tissues of the neck are unremarkable. Bones/joints: Left mandibular condyle with some flattening. See coronal series 9: Image 43. This is asymmetric to the right side. This may represent degenerative disease of the left TMJ. Lungs: Lung apices are clear. IMPRESSION: 1. Bilateral cervical carotid and vertebral arteries are unremarkable. Widely patent. 2. Soft tissues of the neck are unremarkable. 3. Mild flattening of the left mandibular condylar head may represent left-sided TMJ degenerative change. Recommend clinical correlation. REFERENCES: NASCET CRITERIA. The degree of stenosis in the cervical segment of the internal carotid artery is based on NASCET criteria. Normal is no stenosis. Mild is less than 50% stenosis. Moderate is 50-69% stenosis. Severe is 70% to 99% stenosis. Total occlusion is no detectable patent lumen. Dictated and Authenticated by: Mahesh Hudson MD. Ordering:KLAUDIA Ramirez MD
[2023-08-07 01:21] VITALS: BP 142/63; PULSE 78; RESP 18; TEMP 36.6; O2SAT 98
== END 2023-08-07 01:21 | disposition home or self-care (01) ==
PROVIDERS: Emergency Provider Student in an Organized Health Care Education/Training Program; PCP Student in an Organized Health Care Education/Training Program
DX: H92.02 Otalgia, left ear (principal); R20.2 Paresthesia of skin; M26.602 Left temporomandibular joint disorder, unspecified
CPT/HCPCS: 70496; 70498; 80053; 99285; 84443; 84702; 85025; 99283; J3490

== ENCOUNTER → 2023-08-25 01:32 | Outpatient (CLI) | payer MEDICAID, SELFPAY ==
--- NOTE | 2023-08-25 07:45 | DI.RAD_ITS ---
Exam(s) XR SHOULDER LT COMPLETE 2+V EXAM: XR SHOULDER LT COMPLETE 2+V CLINICAL HISTORY: evaluate joint spacing,s/p fall, lt ant shoulder pain, m25.512. TECHNIQUE: 2D digital imaging was performed. COMPARISON: No exams were available for comparison FINDINGS: Five views. No evidence of fracture or dislocation nor significant soft tissue densities. Subacromial space unre markable. No obvious degenerative changes in the glenohumeral and AC joints. Clavicle unremarkable. IMPRESSION: No acute osseous findings in the shoulder. DATA REPOSITORY: RADIATION DOSE DELIVERED:
== END ==
PROVIDERS: PCP Student in an Organized Health Care Education/Training Program; Visit Provider Student in an Organized Health Care Education/Training Program
DX: M25.512 Pain in left shoulder (principal)
CPT/HCPCS: 73030

== ENCOUNTER 2023-11-22 19:50 | Outpatient (CLI) | payer MEDICAID, SELFPAY ==
[2023-11-22 17:05] LABS: Hemoglobin A1C 4.9 % (<5.7)
[2023-11-22 18:47] LABS: Folate 17.9 ng/mL (8.6-20.0)
[2023-11-22 19:16] LABS: Anion Gap 10.7 mmol/L (3-11); BUN 19 mg/dL (7-18); CO2 27.3 mmol/L (21.0-32.0); CREATININE 0.6 mg/dL (0.55-1.02); Calcium 9.5 mg/dL (8.5-10.1); Calculated LDL 192 mg/dL (<100); Chloride 104 mmol/L (98-107); Cholesterol 289 mg/dL (<200); Estimated GFR 125.31 (mL/min/1.73m2); Glucose 91 mg/dL (74-106); HDL Cholesterol 39 mg/dL (40-60); Potassium 4.2 mmol/L (3.5-5.1); Sodium 142 mmol/L (136-145); TSH (W/Ref FT4) 1.88 uIU/mL (0.36-3.74); Triglyceride 292 mg/dL (<150); Vitamin B12 523 pg/mL (193-986); Vitamin D 25 Total 21.5 ng/mL (30-100)
== END 2023-11-22 19:51 | disposition home or self-care (01) ==
LOC: LBO 19:50
PROVIDERS: PCP Student in an Organized Health Care Education/Training Program; Visit Provider Student in an Organized Health Care Education/Training Program
DX: Z86.2 Personal history of diseases of the blood and blood-forming organs and certain disorders involving the immune mechanism (principal); E46 Unspecified protein-calorie malnutrition; K90.9 Intestinal malabsorption, unspecified; E03.9 Hypothyroidism, unspecified; E55.9 Vitamin D deficiency, unspecified; R19.7 Diarrhea, unspecified; R73.09 Other abnormal glucose; Z13.220 Encounter for screening for lipoid disorders; Z91.89 Other specified personal risk factors, not elsewhere classified; R79.89 Other specified abnormal findings of blood chemistry; E06.3 Autoimmune thyroiditis
CPT/HCPCS: 36415; 80048; 80061; 82306; 82607; 82746; 83036; 84443

== ENCOUNTER 2023-12-17 09:38 | Outpatient (CLI) | payer MEDICAID, SELFPAY ==
--- NOTE | 2023-12-17 09:30 | DI.RAD_ITS ---
Exam(s) XR LUMBAR SPINE COMPLETE EXAM: XR LUMBAR SPINE COMPLETE CLINICAL HISTORY: evaluate tailbone pain,low back pain, injury, m54.50. TECHNIQUE: 2D digital imaging was performed of the lumbar spine. Six images were obtained. AP, lat eral, right oblique, left oblique and L5-S1 spot views were obtained. COMPARISON: No exams were available for comparison FINDINGS: BONES: No fracture or destructive lesion. Vertebral bodies are unremarkable. No facet hypertrophy mandeep ntified. DISKS: Intervertebral disc spaces are maintained. ALIGNMENT: Lumbar spinal alignment is within normal limits. No spondylolysis or spondylolisthesis. SOFT TISSUE: There are surgical clips in the right upper quadrant of the abdomen which can be seen wi th prior cholecystectomy. Surgical clips are also seen in the pelvis. IMPRESSION: Unremarkable radiographs of the lumbar spine. DATA REPOSITORY: RADIATION DOSE DELIVERED:
--- NOTE | 2023-12-17 09:30 | DI.RAD_ITS ---
Exam(s) XR SACRUM EXAM: XR SACRUM CLINICAL HISTORY: evaluate tailbone pain,injury, low back pain,[id number]. TECHNIQUE: 2D digital imaging was performed. COMPARISON: No exams were available for comparison FINDINGS: BONES: No acute fracture is present. No bony destructive lesion is seen. JOINTS: No dislocation present. The sacroiliac joints are unremarkable. SOFT TISSUE: There are surgical clips seen in the pelvis. IMPRESSION: Unremarkable radiographs of the sacrum. DATA REPOSITORY: RADIATION DOSE DELIVERED:
== END 2023-12-17 09:58 ==
LOC: DI 09:39
PROVIDERS: PCP Student in an Organized Health Care Education/Training Program; Visit Provider Student in an Organized Health Care Education/Training Program
DX: M53.3 Sacrococcygeal disorders, not elsewhere classified; R20.2 Paresthesia of skin
CPT/HCPCS: 72110; 72220

== ENCOUNTER 2023-12-23 11:48 | Emergency (ER) | payer MEDICAID, SELFPAY ==
[2023-12-23 11:50] VITALS: BP 123/82; PULSE 72; RESP 16; TEMP 36.7; O2SAT 97
--- NOTE | 2023-12-23 12:15 | DI.MRI_ITS ---
Exam(s) MR LUMBAR SPINE WO EXAM: MR LUMBAR SPINE WO CLINICAL HISTORY: PELVIC PAIN, NUMBNESSS. TECHNIQUE: Multiplanar multisequence MRI of the Lumbar spine was performed. COMPARISON: CR XR LUMBAR SPINE COMPLETE from 12/17/2023 CR XR SACRUM from 12/17/2023 FINDINGS: Bones: The last intervertebral disc space is designated the L5/S1 level for the numbering purpose of this ex amination. The vertebral body heights are well maintained. Alignment: Unremarkable. The marrow signal characteristics are unremarkable. Cord: The conus tip ends at the T12 level. It is of normal size and signal intensity. T12-L1: No focal disc herniation is present. No central spinal canal stenosis.No neural foraminal st enosis. L1-2: No focal disc herniation is present. No central spinal canal stenosis.No neural foraminal sten osis. L2-3: No focal disc herniation is present. No central spinal canal stenosis.No neural foraminal hernandez nosis. L3-4: No focal disc herniation is present. No central spinal canal stenosis.No neural foraminal hernandez nosis. L4-5: No focal disc herniation is present. No central spinal canal stenosis.No neural foraminal sten osis. L5-S1: No focal disc herniation is present. No central spinal canal stenosis.No neural foraminal st enosis. The visualized SI joints and sacrum are unremarkable. Soft tissues: The paraspinal soft tissues are unremarkable. IMPRESSION: Negative MRI of the lumbar spine. DATA REPOSITORY:
--- NOTE | 2023-12-23 14:33 | NUR.NOTE ---
Nursing Note:Patient refused medication for MRI
[2023-12-23 14:39] VITALS: BP 121/68; PULSE 94; RESP 18; O2SAT 100
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
== END 2023-12-23 15:06 | disposition home or self-care (01) ==
PROVIDERS: Emergency Provider Emergency Medicine; PCP Student in an Organized Health Care Education/Training Program
DX: R10.2 Pelvic and perineal pain (principal)
CPT/HCPCS: 99284; 72148; 99283

== ENCOUNTER 2024-01-10 01:07 | Outpatient (CLI) | payer MEDICAID, SELFPAY ==
--- NOTE | 2024-01-10 08:00 | DI.MRI_ITS ---
Exam(s) MR PELVIS WO/W EXAM: MR PELVIS WO/W CLINICAL HISTORY: eval pelvis pathology, r/o mass, fistula TECHNIQUE: Multiplanar multisequence MRI of Pelvis was performed. CONTRAST MATERIAL: IV Contrast: 19 mL of Dotarem contrast administered. COMPARISON: CT CT ABDOMEN PELVIS WO from 09/07/2021 FINDINGS: Bones: There is no fracture or contusion pattern. No significant joint effusion or labral injury is present. No bone marrow edema is seen. The SI joints and symphysis pubis are well maintained. Musculotendinous structures: Musculotendinous structures demonstrate no abnormality. Intrapelvic structures demonstrate no significant abnormality. The ureters shows this area in secti on scar. Small follicles are noted on both ovaries. No suspicious mass. There is no evidence of suspicious enhancement. IMPRESSION: Normal MRI examination the pelvis. DATA REPOSITORY:
[2024-01-10] MEDS: Normal Saline Flush 10 ML SYR IVP (10:22)
[2024-01-10] MEDS: Gadoterate meglumine 20 ML SYRINGE IVP (10:23)
== END 2024-01-10 01:27 ==
LOC: DI 01:07
PROVIDERS: PCP Student in an Organized Health Care Education/Training Program; Visit Provider Student in an Organized Health Care Education/Training Program
DX: K62.89 Other specified diseases of anus and rectum (principal); Z87.42 Personal history of other diseases of the female genital tract
CPT/HCPCS: 72197

== ENCOUNTER 2024-01-27 12:21 | Emergency (ER) | payer MEDICAID, SELFPAY ==
[2024-01-27 12:36] VITALS: BP 144/76; PULSE 55; RESP 16; TEMP 36.9; O2SAT 99
[2024-01-27 13:33] LABS: Bilirubin Negative (Negative); Blood Negative (Negative); Clarity Sl Cloudy (Clear); Glucose Negative (Negative); Ketones Negative (Negative); Leukocyte Esterase Negative (Negative); Nitrite Negative (Negative); Urobilinogen 0.2 mg/dL (Up to 0.2)
[2024-01-27 13:34] LABS: Abs Immature Grans 0.03 10^3/uL (0.0-0.06); Absolute Basophil Count 0.04 10^3/uL (0.0-0.2); Absolute Eosinophil Count 0.23 10^3/uL (0.0-0.7); Absolute Lymphocyte Count 3.23 10^3/uL (1.2-3.4); Absolute Neutrophil Count 4.58 10^3/uL (1.2-6.7); Basophils % 0.5 %; Eosinophils % 2.7 %; HCT 39.5 % (36.0-46.0); HGB 13.4 g/dL (11.2-15.7); Immature Grans % 0.3 %; Lymphocytes % 37.5 %; MCH 29.8 pg (27.0-33.0); MCHC 33.9 % (32.0-36.0); MCV 88 fL (80-95); Monocytes % 5.8 %; Neutrophils % 53.2 %; Platelet Count 222 10^3/uL (130-400); RDW 12.6 % (11.7-14.6); RDW-SD 39.8 fL; WBC 8.61 10^3/uL (4.4-10.8)
[2024-01-27 14:02] LABS: Lipase 37 U/L (16-77)
[2024-01-27 14:05] LABS: ALT 33 U/L (14-59); AST 20 U/L (15-37); Alkaline Phosphatase 95 U/L (46-116); BUN 15 mg/dL (7-18); Bilirubin, Total 0.32 mg/dL (0.2-1.0); CREATININE 0.7 mg/dL (0.55-1.02); Calcium 9.2 mg/dL (8.5-10.1); Chloride 101 mmol/L (98-107); Estimated GFR 120.74 (mL/min/1.73m2); Glucose 84 mg/dL (74-106); Magnesium 1.8 mg/dL (1.8-2.4); Potassium 3.8 mmol/L (3.5-5.1); Sodium 138 mmol/L (136-145); Total Protein 7.7 g/dL (6.4-8.2)
[2024-01-27 14:57] VITALS: BP 131/65; PULSE 58; RESP 14; TEMP 36.4; O2SAT 97
[2024-01-27] MEDS: Omnipaque 350 MG/ML 100 ML BTL IJ (15:00)
[2024-01-27] MEDS: Normal Saline - Diluent 50 ML VIAL IJ (15:02)
--- NOTE | 2024-01-27 15:02 | DI.CT_ITS ---
Exam(s) CT ABDOMEN PELVIS W EXAM: CT ABDOMEN PELVIS W CLINICAL HISTORY: abd pain right upper. TECHNIQUE: Imaging Protocol: Axial computed tomography images with coronal and sagittal reformatted images were created and reviewed CONTRAST MATERIAL: Intravenous: Omnipaque-350 100cc Oral: None COMPARISON: CT CT BRAIN NECK CTA from 08/06/2023 MR MR PELVIS WO/W from 01/10/2024 FINDINGS: VISUALIZED LUNG BASES: No nodules nor pleural effusions evident. ABDOMEN: There is no ascites. LIVER: There are no focal hepatic lesions evident. No dilated intrahepatic ducts. GALLBLADDER/BILIARY: The gallbladder surgically absent. CBD is not dilated. PANCREAS: No evidence of pancreatic mass nor dilatation of the pancreatic duct. SPLEEN: Spleen size is minimally prominent measuring 13.5 cm craniocaudal. There are no splenic lesi ons. Splenic and portal veins are patent. ADRENALS: There are no significant adrenal masses. KIDNEYS:No cysts evident. No solid renal masses. No calculi nor hydronephrosis.. ABDOMINAL AORTA: Abdominal aorta is not enlarged. LYMPH NODES:There is no retroperitoneal nor paraaortic adenopathy. ABDOMINAL WALL: There is a small fat only containing midline umbilical hernia. There is a small 2 mi llimeter foreign body metallic density at this level (series 9/image 51). No evidence of significant inguinal hernia. GI: Appendix is not seen and may be surgically absent. The entire colon is collapsed and difficult t o evaluate as this can sometimes mimic a colitis pattern. There is no evidence of obvious small cr l obstruction, free air, nor abscess. PELVIS: GI: There is no significant diverticular disease in the sigmoid. LYMPH NODES: There is no intrapelvic nor inguinal adenopathy. REPRODUCTIVE: Uterus appears age-appropriate. There is a left ovarian cyst which measures 3 by 2.5 c m. No right adnexal findings. No free fluid in the adnexal regions nor in the cul-de-sac. URINARY BLADDER: No calculi nor obvious masses evident OSSEOUS: No fractures and no significant osseous lesions. Sacroiliac joints unremarkable. IMPRESSION: 1. The gallbladder surgically absent. The biliary tree is not dilated. 2. Mild splenomegaly noted. No splenic lesions. No evidence of splenic vein thrombosis. 3. Appendix not seen and may be surgically absent. 4. Entire colon is collapsed. However, there does not appear to be evidence of a small-bowel obstruc tion. No free fluid. No free air. No abscess. 5. There is a 3 x 2.5 cm cyst in left ovary. No free fluid. There are no other adnexal findings. 6. There is a small fat only containing midline umbilical hernia. There also appears to be a solita ry 2 mm calcification or series 7/image 45; series 9/image 51) foreign body in the subcutaneous fat j ust below this umbilical hernia. There is no inflammatory change in the subcutaneous fat at this lev el. ( Report called by myself to ER physician 01/27/2024 3:20 p.m. RADIATION DOSE DELIVERED: 571.18mGy.cm Total DLP DATA REPOSITORY: All CT scans at this facility are submitted to the National Radiology Data Registry (NRDR) Dose Index Registry (DIR) with the [employer] (ACR). RADIATION OPTIMIZATION: All CT scans at this facility use at least one of these dose optimization te chniques: automated exposure control; mA and/or kV adjustment per patient size (includes targeted exa ms where dose is matched to clinical indication); or iterative reconstruction.
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
[2024-01-27] MEDS: Ondansetron 4 MG/2 ML VIAL IVP (15:58)
== END 2024-01-27 16:16 | disposition home or self-care (01) ==
PROVIDERS: Emergency Provider Student in an Organized Health Care Education/Training Program; PCP Student in an Organized Health Care Education/Training Program
DX: R10.2 Pelvic and perineal pain (principal); R11.0 Nausea
CPT/HCPCS: 36415; 80053; 81025; 83690; 96374; 96375; 99285; 74177; 81003; 83735; 85025; 99284; J0131; J2405; J3490

== ENCOUNTER 2024-01-31 12:06 | Outpatient (REF) | payer MEDICAID, SELFPAY | END 2024-01-31 12:07 | disposition home or self-care (01) | LOC: LBN 12:06 | PROVIDERS: PCP Student in an Organized Health Care Education/Training Program; Visit Provider Nurse Practitioner Adult Health | DX: J02.9 Acute pharyngitis, unspecified (principal); K42.9 Umbilical hernia without obstruction or gangrene; K13.79 Other lesions of oral mucosa; R16.1 Splenomegaly, not elsewhere classified | CPT/HCPCS: 87070 ==

== ENCOUNTER 2024-03-06 16:25 | Outpatient (CLI) | payer MEDICAID, SELFPAY ==
[2024-03-06 16:52] LABS: C-Reactive Protein < 0.50 mg/dL (<or=0.5)
[2024-03-08 08:38] LABS: IgA 189 mg/dL (85-499); IgG 970 mg/dL (610-1616)
[2024-03-08 11:30] LABS: Tissue Transglutaminase IgA <4.0 CU (<20.0)
[2024-03-09 12:49] LABS: Tissue Transglutaminase Ab IgG 3.2 U/mL
== END 2024-03-06 16:26 | disposition home or self-care (01) ==
LOC: LBO 16:25
PROVIDERS: PCP Student in an Organized Health Care Education/Training Program; Visit Provider Physician Assistant Medical
DX: R19.7 Diarrhea, unspecified (principal); K52.9 Noninfective gastroenteritis and colitis, unspecified; K29.70 Gastritis, unspecified, without bleeding; K59.4 Anal spasm; R10.2 Pelvic and perineal pain; R10.84 Generalized abdominal pain
CPT/HCPCS: 36415; 82784; 86364; 86140

== ENCOUNTER 2024-03-07 15:28 | Outpatient (REF) | payer MEDICAID, SELFPAY ==
[2024-03-07 23:29] LABS: Campylobacter PCR Negative (Negative); Salmonella PCR Positive (Negative); Shiga Toxin PCR Negative (Negative); Shigella/Enteroinvasive Ecoli Negative (Negative)
[2024-03-09 23:21] LABS: Calprotectin 119 mcg/g
[2024-03-10 19:57] LABS: Pancreatic Elastase, F >500 mcg/g
== END 2024-03-07 15:29 | disposition home or self-care (01) ==
LOC: LBN 15:28
PROVIDERS: PCP Student in an Organized Health Care Education/Training Program; Visit Provider Physician Assistant Medical
DX: R19.7 Diarrhea, unspecified (principal); K52.9 Noninfective gastroenteritis and colitis, unspecified; K90.9 Intestinal malabsorption, unspecified; K29.70 Gastritis, unspecified, without bleeding; K59.4 Anal spasm; R10.2 Pelvic and perineal pain; R10.9 Unspecified abdominal pain; R10.84 Generalized abdominal pain
CPT/HCPCS: 87338; 87505; 82656; 83993

== ENCOUNTER 2024-03-08 10:08 | Outpatient (REF) | payer MEDICAID, SELFPAY ==
[2024-03-10 15:03] LABS: Helicobacter pylori Ag, Feces Negative (Negative)
[2024-03-13 13:44] LABS: Misc Referral (MAYO) See Comments
[2024-03-13 13:46] LABS: Misc Referral (MAYO) See Comments
== END 2024-03-08 10:09 | disposition home or self-care (01) ==
LOC: LBN 10:08
PROVIDERS: Physician Assistant Medical; PCP Student in an Organized Health Care Education/Training Program; Visit Provider Student in an Organized Health Care Education/Training Program
DX: K52.9 Noninfective gastroenteritis and colitis, unspecified (principal); R19.7 Diarrhea, unspecified; K90.9 Intestinal malabsorption, unspecified; K29.70 Gastritis, unspecified, without bleeding; R10.9 Unspecified abdominal pain
CPT/HCPCS: 87328; 87329; 87338

== ENCOUNTER 2024-04-20 16:49 | Outpatient (CLI) | payer MEDICAID, SELFPAY ==
[2024-04-20 17:34] LABS: Cholesterol 282 mg/dL (<200); HDL Cholesterol 34 mg/dL (40-60); TSH 3.56 uIU/mL (0.36-3.74); Triglyceride 522 mg/dL (<150); Vitamin D 25 Total 17.7 ng/mL (30-100)
[2024-04-20 20:21] LABS: LDL CHOLESTEROL 167 mg/dL (<100)
== END 2024-04-20 16:50 | disposition home or self-care (01) ==
LOC: LBO 16:51
PROVIDERS: PCP Student in an Organized Health Care Education/Training Program; Visit Provider Internal Medicine Endocrinology, Diabetes & Metabolism
DX: E06.3 Autoimmune thyroiditis (principal); E28.2 Polycystic ovarian syndrome; E55.9 Vitamin D deficiency, unspecified; E78.49 Other hyperlipidemia; R73.09 Other abnormal glucose
CPT/HCPCS: 36415; 80061; 82306; 83721; 84443; 85025

== ENCOUNTER 2024-06-19 17:45 | Outpatient (REF) | payer MEDICAID, SELFPAY ==
[2024-06-20 23:58] LABS: Campylobacter PCR Negative (Negative); Salmonella PCR Negative (Negative); Shiga Toxin PCR Negative (Negative); Shigella/Enteroinvasive Ecoli Negative (Negative)
[2024-06-22 16:45] LABS: Calprotectin <50.0 mcg/g
== END 2024-06-19 17:46 | disposition home or self-care (01) ==
LOC: LBN 17:45
PROVIDERS: PCP Nurse Practitioner; Visit Provider Physician Assistant Medical
DX: A02.9 Salmonella infection, unspecified (principal); R19.7 Diarrhea, unspecified; R10.9 Unspecified abdominal pain
CPT/HCPCS: 87505; 83993

== ENCOUNTER 2024-06-20 08:20 | Outpatient (REF) | payer MEDICAID, SELFPAY | END 2024-06-20 08:21 | disposition home or self-care (01) | LOC: LBN 08:20 | PROVIDERS: PCP Nurse Practitioner; Visit Provider Physician Assistant Medical | DX: A02.9 Salmonella infection, unspecified (principal); R19.7 Diarrhea, unspecified; R10.9 Unspecified abdominal pain | CPT/HCPCS: 87177 ==

== ENCOUNTER 2024-07-06 16:38 | Outpatient (REF) | payer MEDICAID, SELFPAY ==
[2024-07-06 19:27] LABS: Bilirubin Negative (Negative); Blood Negative (Negative); Clarity Clear (Clear); Glucose Negative (Negative); Ketones Negative (Negative); Leukocyte Esterase Trace (Negative); Nitrite Negative (Negative); Specific Gravity 1.025 (1.005-1.025); Urobilinogen 0.2 mg/dL (Up to 0.2)
[2024-07-06 19:52] LABS: Bacteria Negative HPF (Negative); C & S Indicated? No; Crystals Negative HPF (Negative); Epithelial Cells Many HPF (Negative); Mucus Negative (Negative); RBC Negative HPF (0-2); WBC 0-2 HPF (0-5)
== END 2024-07-06 16:39 | disposition home or self-care (01) ==
LOC: LBN 16:38
PROVIDERS: PCP Nurse Practitioner; Visit Provider Nurse Practitioner Adult Health
DX: M54.9 Dorsalgia, unspecified (principal); S29.012A Strain of muscle and tendon of back wall of thorax, initial encounter; N30.90 Cystitis, unspecified without hematuria
CPT/HCPCS: 81003; 81015

== ENCOUNTER 2024-07-21 00:12 | Outpatient (CLI) | payer MEDICAID, SELFPAY ==
--- NOTE | 2024-07-21 06:15 | DI.US_ITS ---
Exam(s) US ABDOMEN LIMITED EXAM: US ABDOMEN LIMITED CLINICAL HISTORY: RUQ pain,r10.11 TECHNIQUE: Ultrasound abdomen performed using standard protocol. COMPARISON: CT CT ABDOMEN PELVIS W from 01/27/2024 FINDINGS: LIVER: Enlarged at 19 0.2 cm. Mild hepatic steatosis.. No focal liver lesions are seen.. GALLBLADDER: And cholecystectomy. BILIARY SYSTEM: No intrahepatic or extrahepatic biliary ductal dilation. RIGHT KIDNEY: Normal size. No evidence of renal calculi. No evidence of hydronephrosis. No suspicious renal mass. No cyst identified. Normal variant of column of [place] bilaterally. PANCREAS: Normal where visualized. ABDOMINAL AORTA AND IVC: Visualized portions normal caliber. ASCITES: None seen. IMPRESSION: No acute abnormality. DATA REPOSITORY:
== END 2024-07-21 00:32 ==
LOC: DI 00:12
PROVIDERS: PCP Nurse Practitioner; Visit Provider Nurse Practitioner
DX: R10.11 Right upper quadrant pain (principal)
CPT/HCPCS: 76705

== ENCOUNTER 2024-07-21 09:15 | Outpatient (CLI) | payer MEDICAID, SELFPAY ==
[2024-07-21 09:37] LABS: HGB 12.9 g/dL (11.2-15.7); MCH 29.5 pg (27.0-33.0); MCHC 33.9 % (32.0-36.0); MCV 87 fL (80-95); MPV 10.7 fL (8.0-11.0); Platelet Count 233 10^3/uL (130-400); RBC 4.37 10^6/uL (3.93-5.22); RDW 12.7 % (11.7-14.6); WBC 9.07 10^3/uL (4.4-10.8)
[2024-07-21 09:48] LABS: Hemoglobin A1C 4.9 % (<5.7)
[2024-07-21 10:40] LABS: Calculated LDL 204 mg/dL (<100); Cholesterol 301 mg/dL (<200); HDL Cholesterol 44 mg/dL (>or=50); TSH (W/Ref FT4) 2.02 uIU/mL (0.36-3.74); Triglyceride 269 mg/dL (<150); Vitamin D 25 Total 21 ng/mL (30-100)
[2024-07-21 10:51] LABS: ALT 38 U/L (14-59); AST 22 U/L (15-37); Alkaline Phosphatase 75 U/L (46-116); Bilirubin, Direct 0.1 mg/dL (0.0-0.2); Bilirubin, Total 0.4 mg/dL (0.2-1.0); Total Protein 7.7 g/dL (6.4-8.2)
== END 2024-07-21 09:16 | disposition home or self-care (01) ==
LOC: LBO 09:15
PROVIDERS: PCP Nurse Practitioner; Visit Provider Physician Assistant Medical
DX: A02.9 Salmonella infection, unspecified (principal); R19.7 Diarrhea, unspecified; R10.9 Unspecified abdominal pain; E06.3 Autoimmune thyroiditis; E28.2 Polycystic ovarian syndrome; E55.9 Vitamin D deficiency, unspecified; E78.49 Other hyperlipidemia; R73.09 Other abnormal glucose
CPT/HCPCS: 36415; 80061; 80076; 82306; 85027; 83036; 84443

== ENCOUNTER 2024-08-30 17:10 | Outpatient (CLI) | payer MEDICAID, SELFPAY ==
[2024-08-30 17:52] LABS: ALT 41 U/L (14-59); AST 23 U/L (15-37); Albumin 4.1 g/dL (3.4-5.0); Alkaline Phosphatase 98 U/L (46-116); Anion Gap 7.7 mmol/L (3-11); BUN 17 mg/dL (7-18); Bilirubin, Total 0.3 mg/dL (0.2-1.0); CO2 28.3 mmol/L (21.0-32.0); CREATININE 0.7 mg/dL (0.55-1.02); Calcium 9.5 mg/dL (8.5-10.1); Chloride 106 mmol/L (98-107); Estimated GFR 119.99 (mL/min/1.73m2); Glucose 101 mg/dL (74-106); Potassium 4.2 mmol/L (3.5-5.1); Sodium 142 mmol/L (136-145); Total Protein 7.6 g/dL (6.4-8.2)
== END 2024-08-30 17:11 | disposition home or self-care (01) ==
LOC: LBO 17:11
PROVIDERS: PCP Nurse Practitioner; Visit Provider Nurse Practitioner
DX: M62.838 Other muscle spasm (principal)
CPT/HCPCS: 36415; 80053; 83735

== ENCOUNTER 2024-10-31 16:52 | Outpatient (CLI) | payer MEDICAID, SELFPAY ==
[2024-10-31 17:13] LABS: Glucose Negative (Negative)
[2024-10-31 17:18] LABS: ESR 6 mm/hr (0-20)
[2024-10-31 17:28] LABS: C & S Indicated? No; WBC Negative HPF (0-5)
[2024-10-31 18:07] LABS: Creatine Kinase 89 U/L (26-192)
[2024-10-31 18:15] LABS: TSH (W/Ref FT4) 1.52 uIU/mL (0.36-3.74)
[2024-10-31 18:28] LABS: C-Reactive Protein < 0.50 mg/dL (<or=0.5)
[2024-10-31 18:44] LABS: Cholesterol 270 mg/dL (<200); HDL Cholesterol 30 mg/dL (>or=50); Triglyceride 420 mg/dL (<150); Vitamin D 25 Total 19 ng/mL (30-100)
[2024-10-31 19:34] LABS: ALT 38 U/L (14-59); AST 29 U/L (15-37); Albumin 4.0 g/dL (3.4-5.0); Alkaline Phosphatase 81 U/L (46-116); Anion Gap 10.8 mmol/L (3-11); BUN 15 mg/dL (7-18); Bilirubin, Total 0.2 mg/dL (0.2-1.0); CO2 24.2 mmol/L (21.0-32.0); Calcium 9.2 mg/dL (8.5-10.1); Chloride 106 mmol/L (98-107); Estimated GFR 124.53 (mL/min/1.73m2); Glucose 103 mg/dL (74-106); Potassium 4.4 mmol/L (3.5-5.1); Sodium 141 mmol/L (136-145); Total Protein 7.5 g/dL (6.4-8.2)
[2024-10-31 20:08] LABS: LDL CHOLESTEROL 171 mg/dL (<100)
== END 2024-10-31 16:53 | disposition home or self-care (01) ==
PROVIDERS: Internal Medicine Endocrinology, Diabetes & Metabolism; PCP Nurse Practitioner; Visit Provider Nurse Practitioner Family
DX: E03.9 Hypothyroidism, unspecified (principal); M79.10 Myalgia, unspecified site; M54.9 Dorsalgia, unspecified; E06.3 Autoimmune thyroiditis; E28.2 Polycystic ovarian syndrome; E55.9 Vitamin D deficiency, unspecified; E78.49 Other hyperlipidemia
CPT/HCPCS: 36415; 80053; 80061; 82306; 82550; 83721; 85652; 81003; 81015; 84443; 86140

== ENCOUNTER 2025-02-03 16:31 | Emergency (ER) | payer MEDICAID, SELFPAY ==
[2025-02-03] VITALS (9 sets, daily range): BP systolic 104–133; BP diastolic 54–73; PULSE 65–94; RESP 14–21; TEMP 36.1; O2SAT 95–99
--- NOTE | 2025-02-03 16:30 | RT.EKG_ITS ---
APPROVED REPORT Exam: Resting ECG Reason for Exam: Chest Pain Patient Location: E HR:79 bpm ECG Measurements Heart Rate 79 AXIS MI 139 P 45 QRSd 91 QRS 49 QT 346 T 51 QTc 397 Conclusion Sinus arrhythmia...V-rate 64- 97, variation>10%
--- NOTE | 2025-02-03 16:45 | DI.RAD_ITS ---
Exam(s) XR CHEST 2V PA LATERAL EXAM: XR CHEST 2V PA LATERAL CLINICAL HISTORY: Chest pain. TECHNIQUE: 2D digital imaging was performed. COMPARISON: CR XR CHEST 2V PA LATERAL from 05/18/2022 FINDINGS: 2 views: Heart size is normal. The mediastinum is not widened. Left lung is clear. There is a 9 mm nodular density in the right lung apex. This projects over the posterior aspect of the right 3rd rib. This was not evident on prior chest x-ray of May 2022. No other pulmonary nodules evident. IMPRESSION: Solitary noncalcified 9 mm nodule in the right upper lobe region which is not evident on prior chest x-ray of May 2022.Appropriate follow-up recommended. DATA REPOSITORY: RADIATION DOSE DELIVERED:
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
[2025-02-03] MEDS: Albuterol HFA 8 GM 60 PUFF INH IH (17:03)
[2025-02-03 17:07] LABS: Abs Immature Grans 0.07 10^3/uL (0.0-0.06); HCT 36.1 % (36.0-46.0); HGB 12.3 g/dL (11.2-15.7); Immature Grans % 0.6 %; MCH 29.1 pg (27.0-33.0); MCHC 34.1 % (32.0-36.0); MCV 86 fL (80-95); MPV 10.5 fL (8.0-11.0); Platelet Count 234 10^3/uL (130-400); RBC 4.22 10^6/uL (3.93-5.22); RDW 12.6 % (11.7-14.6); RDW-SD 38.9 fL; WBC 12.03 10^3/uL (4.4-10.8)
[2025-02-03 17:31] LABS: ALT 53 U/L (14-59); AST 20 U/L (15-37); Albumin 4.3 g/dL (3.4-5.0); Alkaline Phosphatase 63 U/L (46-116); Anion Gap 10.9 mmol/L (3-11); BUN 14 mg/dL (7-18); Bilirubin, Total 0.4 mg/dL (0.2-1.0); CO2 25.1 mmol/L (21.0-32.0); Calcium 9.1 mg/dL (8.5-10.1); Chloride 104 mmol/L (98-107); Estimated GFR 102.22 (mL/min/1.73m2); Glucose 97 mg/dL (74-106); Lipase 45 U/L (<78); Magnesium 1.9 mg/dL (1.8-2.4); Potassium 3.6 mmol/L (3.5-5.1); Sodium 140 mmol/L (136-145); Total Protein 7.6 g/dL (6.4-8.2); Troponin I 4 ng/L (<or=51)
[2025-02-03 17:34] LABS: D-Dimer 160 ng/mlFEU (<500)
[2025-02-03] MEDS: MYLANTA 30 ML, LIDOCAINE 2% VISCOUS UD 15 ML PO (17:56)
[2025-02-03 18:36] LABS: Troponin I < 4 ng/L (<or=51)
== END 2025-02-03 19:21 | disposition home or self-care (01) ==
PROVIDERS: Emergency Provider Registered Nurse Emergency; PCP Nurse Practitioner
DX: R91.8 Other nonspecific abnormal finding of lung field (principal); R07.9 Chest pain, unspecified; R06.09 Other forms of dyspnea; R06.02 Shortness of breath
CPT/HCPCS: 99285; 99284; 80053; 83690; 93005; 71046; 83735; 84484; 85025; 85379; 93010

== ENCOUNTER 2025-02-07 02:18 | Outpatient (CLI) | payer MEDICAID, SELFPAY ==
--- NOTE | 2025-02-07 07:02 | DI.CT_ITS ---
Exam(s) CT CHEST W EXAM: CT CHEST W CLINICAL HISTORY: Characterize nodule found incidentally on xray on X-Ray TECHNIQUE: Imaging Protocol: Axial computed tomography images with coronal and sagittal reformatted images were created and reviewed. Computer aided detection (CAD) was utilized. CONTRAST MATERIAL: Intravenous: Omnipaque 350Contrast volume:70 mL. COMPARISON: CR XR CHEST 2V PA LATERAL from 05/18/2022 CR XR CHEST 2V PA LATERAL from 02/03/2025 FINDINGS: Tracheobronchial tree: Patent where visualized. No evidence of bronchiectasis. Pulmonary parenchyma: No consolidation or dominant measurable mass. No architectural distortion. There is a calcified granuloma in the right lower lobe. There are no noncalcified pulmonary nodules. There is no nodule seen in the right lung apex to correspond to the chest x-ray finding. Mediastinum and Vero: No dominant adenopathy or fluid collection. The esophagus is unremarkable. There is residual thymic tissue in the anterior mediastinum. Thyroid gland: Unremarkable. Pleura: No effusion or pneumothorax. Heart: The heart is not dilated. No coronary artery calcifications are seen. No pericardial effusion. Aorta: Thoracic aorta non-dilated. Pulmonary arteries: The pulmonary arteries are insufficiently opacified for evaluation of pulmonary emboli. Upper abdomen: Status post cholecystectomy. Lymph nodes: Within normal limits. Bones: Within normal limits for the patient's age. There are no sclerotic rib lesions. Soft tissues: Unremarkable. IMPRESSION: 1. There is no pulmonary nodule rib lesion to correspond to the nodule seen on the chest x-ray from 02/03/2025. The area likely represents a superimposition of the right T3 transverse process in the posterior right 3rd rib. 2. There is no acute pulmonary process. RADIATION DOSE DELIVERED: 216mGy.cm Total DLP DATA REPOSITORY: All CT scans at this facility are submitted to the National Radiology Data Registry (NRDR) Dose Index Registry (DIR) with the [employer] (ACR). RADIATION OPTIMIZATION: All CT scans at this facility use at least one of these dose optimization techniques: automated exposure control; mA and/or kV adjustment per patient size (includes targeted exams where dose is matched to clinical indication); or iterative reconstruction.
[2025-02-07] MEDS: Normal Saline - Diluent 50 ML VIAL IJ (15:24)
[2025-02-07] MEDS: Normal Saline Flush 10 ML SYR IVP (15:25)
[2025-02-07] MEDS: Omnipaque 350 MG/ML 100 ML BTL IJ (15:25)
== END 2025-02-07 02:38 ==
LOC: DI 02:19
PROVIDERS: PCP Nurse Practitioner
DX: R91.1 Solitary pulmonary nodule (principal)
CPT/HCPCS: 71260; J3490